=== PATIENT | female | born 1950 | race Caucasian/White ===

== ENCOUNTER 2018-11-26 05:13 | Inpatient (IN) ==
[2018-11-26] MEDS ORDERED: Amiodarone Premix 360 MG/200 ML BAG IVC ONE (05:26)
[2018-11-26] MEDS ORDERED: Amiodarone Premix 150 MG/100 ML BAG IVPB ONE (05:26)
[2018-11-26] MEDS ORDERED: 0.9 % Sodium Chloride 1,000 ML IVC ONE ×2 (05:26→07:08)
[2018-11-26] MEDS ORDERED: Aspirin 81 MG TAB.CHEW PO ONE (05:29)
--- NOTE | 2018-11-26 05:35 | Emergency Department Note ---
Disposition Clinical Impression: Wide-complex tachycardia, New onset a-fib, Atrial fibrillation with RVR, NSTEMI (non-ST elevated myocardial infarction) Disposition: Still a Patient Condition: Serious Referrals: Elliott Pierre MD [Primary Care Provider] - Forms: ED Satisfaction Letter Time of Disposition: 07:18 General Adult HPI - General Stated complaint: [place] Time Seen by Provider: 11/26/18 05:21 Source: patient, EMS Mode of arrival: EMS Limitations: no limitations Nursing Notes Reviewed: Yes Vital Signs Reviewed: Yes - History of Present Illness HPI Narrative: Patient is a 67-year-old female presenting with acute onset chest heaviness and shortness of breath. Patient with known history of COPD, hypertension, hyperlipidemia and diabetes. Patient states that around 0330 she was awoken by headache, she is not then states that she began to have some heaviness in the middle of her chest without radiation, and significant shortness of breath. She states this is continued throughout the night which is why she called EMS. On EMSs arrival, patient appeared to have an irregularly irregular rhythm with a heart rate in the 160s. Patient denies history of similar heart rhythm in the past. She is on any blood thinners. She denies similar symptoms in the past. She denies any vomiting but has had slight nausea. She denies any recent cough, fever or chills. No abdominal pain. Normal urine output without dysuria, normal bowel movements. No abdominal pain. Pain Scale: 0 - Related Data Home Medications Medication Instructions Recorded Confirmed Oxygen 1 each .ROUTE AD 07/21/16 07/21/16 glipiZIDE [Glipizide] 10 mg PO DAILY 07/21/16 07/21/16 metFORMIN [Glucophage] 500 mg PO DAILY 07/21/16 07/21/16 Previous Rx's Medication Instructions Recorded Cyclobenzaprine [Flexeril] 10 mg PO TID PRN #15 tablet 08/25/15 Naproxen [Naprosyn] 500 mg PO BID #15 tablet 08/25/15 Azithromycin [Azithromycin 6-Tab 250 mg PO PER PKG DI #6 tab 07/21/16 Pack] Guaifenesin/Pseudoephedrne HCl 1 each PO BID #20 tab.er.12h 07/21/16 [Mucinex D ER 1,200-120 mg Tab] Meclizine HCl [Verticalm] 25 mg PO TID PRN #20 tablet 07/21/16 Cyclobenzaprine [Flexeril] 10 mg PO HS #4 tablet 10/16/18 Morphine Sulfate Immed Rel 15 mg PO Q4HR PRN 2 Days #12 tab 10/16/18 [Morphine Sulfate] PredniSONE [Deltasone] 60 mg PO DAILY 5 Days #15 tablet 10/16/18 Allergies Allergy/AdvReac Type Severity Reaction Status Date / Time lisinopril Allergy See Verified 10/16/18 18:39 Comments Penicillins Allergy Hives Verified 10/16/18 18:39 All systems ED: reviewed and negative except as stated. Review of Systems: As Per HPI Constitutional: Denies: fever, chills ENT ED: Denies: congestion Cardiovascular: Reports: chest pain, dyspnea on exertion. Denies: palpitations, syncope Respiratory: Reports: dyspnea. Denies: cough, wheezes Gastrointestinal: Reports: nausea. 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 Absent: respiratory distress, wheezes - Cardiovascular Cardiovascular exam: Present: tachycardia, irregular rhythm - Abdominal Exam Abdominal exam: Present: soft, Non-Tender. Absent: tenderness, distention, guarding, rebound, rigidity - Extremities Exam Extremities exam: Present: normal inspection, full ROM. Absent: tenderness, pedal edema - Expanded Lower Extremity Exam Neurovascular/Tendon exam: Absent: motor deficit, sensory deficit, tendon deficit - Back Exam Back exam: Present: normal inspection, full ROM. Absent: tenderness - Neurological Exam Neurological exam: Present: alert, oriented X3 - Psychiatric Psychiatric exam: Present: normal affect, normal mood - Skin Skin exam: Present: warm, dry, intact, normal color Course - Consultations Consultation #1: I spoke with on-call cotton broker, Dr. Mcelroy, I discussed with Dr. Mcelroy that we have at this point in time given the patient and amiodarone bolus as well as started on amiodarone drip for concern with atrial fibrillation wide complex with left bundle branch block, patient has had soft blood pressures here with lowest systolic being 89, high systolic being 110, on arrival, patient's heart rate was in the 160s to 170s beats per minute, since the amiodarone bolus and amiodarone drip her heart rate has been in the 120s, 130s but will bounce up to the 160s at times. I did discuss my concern with starting Cardizem as well as Lopressor given these low blood pressures, however per his recommendation we will start with a Cardizem bolus and Cardizem drip. Patient will be admitted. He will consult on admission. Vital Signs Temperature 97.6 F 11/26/18 05:16 Pulse Rate 162 11/26/18 05:16 Respiratory Rate 12 11/26/18 05:16 Blood Pressure 133/110 11/26/18 05:16 O2 Sat by Pulse Oximetry 98 11/26/18 05:16 Temperature 97.6 F 11/26/18 05:16 Pulse Rate 156 11/26/18 06:24 Respiratory Rate 21 11/26/18 06:24 Blood Pressure 103/72 11/26/18 06:24 O2 Sat by Pulse Oximetry 98 11/26/18 06:24 Oxygen Delivery Oxygen Delivery Room Air Medical Decision Making - [facility] Narrative Medical decision making narrative: Patient is a 67-year-old female presenting with acute onset of chest heaviness, headache and shortness of breath. Patient states that she was awoke from her sleep for headache which she described to be dull bilaterally in nature, she states that she then began to have some chest heaviness, denies specific chest pain, with associated difficulty in breathing. She called EMS, on EMSs arrival, patient had a pulse ox of 98% on room air, her heart rate was irregularly irregular in the 160s to 170s. Blood pressure was stable in the 110s to 120s systolic. On arrival to the ER, patient is in no acute distress, appears uncomfortable, heart rate is in the 160s, appears to have atrial fibrillation with a bundle branch block, when comparison to old EKG performed in 2016, this is new for her. Blood pressure is stable. With this concern with wide complexes and atrial fibrillation with somewhat soft pressures, patient was started on amiodarone bolus and amiodarone drip. Following the amiodarone bolus and amiodarone drip, patient's heart rate began to come down to the 130s to 140s, however remained irregularly irregular. Blood pressure is currently 100 systolic. With this concern and as patient is not rate controlled, did discuss this case with cardiology, Dr. Mcelroy who recommended even though patient is somewhat with low blood pressure, to give Cardizem bolus with initiation of Cardizem drip. Blood pressure following the Cardizem bolus dropped down to 70 systolic, a second liter of bolus was started, and blood pressure was immediately retaken is currently 96 systolic. Patient remained asymptomatic with slight shortness of breath, no lightheadedness or dizziness. Patient otherwise is remained stable. Given concern for acute onset of headache, CT of the head to rule out acute head bleed. Patient will need to be started on anticoagulant medication, for new onset atrial fibrillation as well as patient has elevated troponin at 0.32, suspect an NSTEMI. I did discuss the EKG changes with Dr. Mcelroy, he suspects that this is rate dependent left bundle branch block, does not suspect this is ischemic in nature. Patient at this point in time is been given a total of 2 L normal saline. Patient has received 324 mg of aspirin. At no point in time during her ER stay to this point, has she been unstable, do not feel as though cardioversion has been necessary as she is remained stable, and relatively asymptomatic. At time of disposition, patient will be admitted, she will cardiology consult, patient was signed out to the day team, Dr. Duke and Dr. Da Silva. At time of sign out, patient had CT of the head pending, pending negative CT of the head, patient only needed to be started on antiplatelet urination medicine. She will then be admitted to most likely the ICU for further rate control as at this point in time she is not been rate controlled. - Medical Records Medical records reviewed: Yes I reviewed the patient's medical records. - Lab Data Lab results reviewed: Yes I reviewed the patient's lab results. Result diagrams: 11/26/18 05:30 11/26/18 05:30 Lab Results 11/26/18 11/26/18 11/26/18 Range/Units 05:30 05:30 05:30 WBC 4.4 (4.3-11.1) K/mcL RBC 5.09 H (3.82-4.97) M/mcL Hgb 12.3 (11.5-15.4) g/dL Hct 38.4 (35.3-44.9) % MCV 75.4 L (83.0-100.0) fL MCH 24.2 L (28.0-33.3) pg MCHC 32.0 (31.6-35.5) g/dL RDW 16.0 H (11.5-14.5) % Plt Count 139 L (140-400) K/mcL MPV 9.4 (9.4-12.4) fL Immature Gran % 0.7 (0-4) % Seg Neutrophils % 68.6 % Lymphocytes % 17.7 % Monocytes % 11.9 % Eosinophils % 0.9 % Basophils % 0.2 % Neutrophils # 3.0 (1.6-8.9) K/mcL Lymphocytes # 0.8 (0.6-4.6) K/mcL Monocytes # 0.5 (0.0-1.3) K/mcL Eosinophils # 0.0 (0.0-0.6) K/mcL Basophils # 0.0 (0.0-0.2) K/mcL PT 12.5 H (9.4-12.1) Seconds INR 1.1 APTT 32.0 (26.0-36.0) Seconds Sodium 134 L (136-145) mEq/L Potassium 3.6 (3.5-5.1) mEq/L Chloride 98 (98-107) mEq/L Carbon Dioxide 23 (23-29) mEq/L BUN 11 (8-23) mg/dL Creatinine 0.76 (0.60-1.20) mg/dL Est GFR ( Amer) > 60 (> 60) Est GFR (Non-Af Amer) > 60 (> 60) BUN/Creatinine Ratio 14 (6-26) Glucose 261 H (70-105) mg/dL Calculated Osmolality 286 (280-300) Calcium 9.4 (8.6-10.3) mg/dL Magnesium 1.6 (1.6-2.6) mg/dL Troponin I 0.32 H* (< 0.04) ng/mL TSH 2.472 (0.340-5.600) mcIU/mL - Radiology Data Radiology results reviewed: Yes I reviewed the patient's radiology results. Chest X-Ray 11/26/18 05:46 IMPRESSION: No acute cardiopulmonary disease. D/ / Mohit Lopez MD / Mohit Lopez MD Interpreting Provider: Mohit Lopez MD - EKG Data EKG #1 EKG attestation: Yes I reviewed and interpreted this EKG. EKG results narrative: Initial EKG on arrival performed at 0524 with ventricular rate of 174, appears to be irregularly irregular rhythm, with wide complex, most consistent with atrial fibrillation with left bundle branch block, no sign of WPW or ST segment elevation. Old EKG performed in March 2015, this is a significant difference as there is new left bundle branch block, no history or noted A. fib on prior EKGs. Repeat EKG at 05 shows ventricular rate of 157, continues with irregularly irregular rhythm, wide complex which appears to continue to be A. fib with left bundle branch block.
[2018-11-26 05:43] LABS: Basophils % 0.2 %; Eosinophils % 0.9 %; Hematocrit 38.4 % (35.3-44.9); Hemoglobin 12.3 g/dL (11.5-15.4); Immature Granulocytes % 0.7 % (0-4); Lymphocytes # 0.8 K/mcL (0.6-4.6); Lymphocytes % 17.7 %; Mean Corpuscular Hemoglobin 24.2 pg (28.0-33.3); Mean Corpuscular Volume 75.4 fL (83.0-100.0); Mean Platelet Volume 9.4 fL (9.4-12.4); Monocytes # 0.5 K/mcL (0.0-1.3); Monocytes % 11.9 %; Platelet Count 139 K/mcL (140-400); Red Blood Count 5.09 M/mcL (3.82-4.97); Segmented Neutrophils % 68.6 %; White Blood Count 4.4 K/mcL (4.3-11.1)
--- NOTE | 2018-11-26 05:45 | Emergency Department Note ---
Disposition Clinical Impression: Wide-complex tachycardia, New onset atrial fibrillation Disposition: Still a Patient Condition: Serious Forms: ED Satisfaction Letter Time of Disposition: 07:15 General Adult HPI - General Chief complaint: ED Arrhythmia/Palpitations Stated complaint: [place] Time Seen by Provider: 11/26/18 05:21 Source: patient, EMS Limitations: no limitations Nursing Notes Reviewed: Yes Vital Signs Reviewed: Yes - History of Present Illness Pain Scale: 0 - Related Data Home Medications Medication Instructions Recorded Confirmed Oxygen 1 each .ROUTE AD 07/21/16 07/21/16 glipiZIDE [Glipizide] 10 mg PO DAILY 07/21/16 07/21/16 metFORMIN [Glucophage] 500 mg PO DAILY 07/21/16 07/21/16 Previous Rx's Medication Instructions Recorded Cyclobenzaprine [Flexeril] 10 mg PO TID PRN #15 tablet 08/25/15 Naproxen [Naprosyn] 500 mg PO BID #15 tablet 08/25/15 Azithromycin [Azithromycin 6-Tab 250 mg PO PER PKG DI #6 tab 07/21/16 Pack] Guaifenesin/Pseudoephedrne HCl 1 each PO BID #20 tab.er.12h 07/21/16 [Mucinex D ER 1,200-120 mg Tab] Meclizine HCl [Verticalm] 25 mg PO TID PRN #20 tablet 07/21/16 Cyclobenzaprine [Flexeril] 10 mg PO HS #4 tablet 10/16/18 Morphine Sulfate Immed Rel 15 mg PO Q4HR PRN 2 Days #12 tab 10/16/18 [Morphine Sulfate] PredniSONE [Deltasone] 60 mg PO DAILY 5 Days #15 tablet 10/16/18 Allergies Allergy/AdvReac Type Severity Reaction Status Date / Time lisinopril Allergy See Verified 10/16/18 18:39 Comments Penicillins Allergy Hives Verified 10/16/18 18:39 Past Medical History - Past Medical History Medical history: Reports: diabetes, hyperlipidemia, hypertension, other Psychiatric history: Reports: no psych history 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 - Social History Smoking Status: Never smoker Smokeless Tobacco Status: No Alcohol use: Reports: none Drug use: Reports: none Physical Exam - General Limitations: no limitations General appearance: alert, in no apparent distress Course Vital Signs Temperature 97.6 F 11/26/18 05:16 Pulse Rate 162 11/26/18 05:16 Respiratory Rate 12 11/26/18 05:16 Blood Pressure 133/110 11/26/18 05:16 O2 Sat by Pulse Oximetry 98 11/26/18 05:16 Temperature 97.6 F 11/26/18 05:16 Pulse Rate 156 11/26/18 06:24 Respiratory Rate 21 11/26/18 06:24 Blood Pressure 103/72 11/26/18 06:24 O2 Sat by Pulse Oximetry 98 11/26/18 06:24 Oxygen Delivery Oxygen Delivery Room Air Medical Decision Making - Medical Records Medical records reviewed: Yes I reviewed the patient's medical records. - Lab Data Lab results reviewed: Yes I reviewed the patient's lab results. Result diagrams: 11/26/18 05:30 11/26/18 05:30 Lab Results 11/26/18 11/26/18 11/26/18 Range/Units 05:30 05:30 05:30 WBC 4.4 (4.3-11.1) K/mcL RBC 5.09 H (3.82-4.97) M/mcL Hgb 12.3 (11.5-15.4) g/dL Hct 38.4 (35.3-44.9) % MCV 75.4 L (83.0-100.0) fL MCH 24.2 L (28.0-33.3) pg MCHC 32.0 (31.6-35.5) g/dL RDW 16.0 H (11.5-14.5) % Plt Count 139 L (140-400) K/mcL MPV 9.4 (9.4-12.4) fL Immature Gran % 0.7 (0-4) % Seg Neutrophils % 68.6 % Lymphocytes % 17.7 % Monocytes % 11.9 % Eosinophils % 0.9 % Basophils % 0.2 % Neutrophils # 3.0 (1.6-8.9) K/mcL Lymphocytes # 0.8 (0.6-4.6) K/mcL Monocytes # 0.5 (0.0-1.3) K/mcL Eosinophils # 0.0 (0.0-0.6) K/mcL Basophils # 0.0 (0.0-0.2) K/mcL PT 12.5 H (9.4-12.1) Seconds INR 1.1 APTT 32.0 (26.0-36.0) Seconds Sodium 134 L (136-145) mEq/L Potassium 3.6 (3.5-5.1) mEq/L Chloride 98 (98-107) mEq/L Carbon Dioxide 23 (23-29) mEq/L BUN 11 (8-23) mg/dL Creatinine 0.76 (0.60-1.20) mg/dL Est GFR ( Amer) > 60 (> 60) Est GFR (Non-Af Amer) > 60 (> 60) BUN/Creatinine Ratio 14 (6-26) Glucose 261 H (70-105) mg/dL Calculated Osmolality 286 (280-300) Calcium 9.4 (8.6-10.3) mg/dL Magnesium 1.6 (1.6-2.6) mg/dL Troponin I 0.32 H* (< 0.04) ng/mL TSH 2.472 (0.340-5.600) mcIU/mL - Radiology Data Radiology results reviewed: Yes I reviewed the patient's radiology results. Chest X-Ray 11/26/18 05:46 IMPRESSION: No acute cardiopulmonary disease. D/ / Mohit Lopez MD / Mohit Lopez MD Interpreting Provider: Mohit Lopez MD - EKG Data EKG #1 EKG attestation: Yes I reviewed and interpreted this EKG. EKG results narrative: EKG shows atrial fibrillation with rapid ventricular response. Wide complex tachycardia with heart rate of 174. Likely a left bundle branch block. Critical Care Time Critical Care Time: Yes Total Critical Care Time: 60 Attestation: Critical care performed: Time is exclusive of separately billable procedures. Time includes: direct patient care, patient reassessment, coordination of patient care, interpretation of data (laboratory data, radiology data, and respiratory data), review of patience ent's medical records, medical consultation and documentation of patient care. Procedures included in critical care time: Procedures excluded from critical care time: Attestation Statement - Attestation Attestation: IGerard MD, personally evaluated this patient and discussed their m anagement with the resident physician. I reviewed the resident's note and agree with the documented findings, medical decision making, and plan of care. I reviewed the residents documentation and agree with the residents assessment and plan of care. I have personally had face to face time with the patient. I personally supervised and was present for the romero/critical portions of the following procedures completed by the resident: EKG interpretation. 67-year-old female presents to the emergency department by EMS with a complaint that she awoke from sleep at 3:30 this morning with severe headache and difficulty breathing. She denies any actual chest pain but complains of a mild heaviness across her chest. She was found to be in atrial fibrillation with RVR with a wide QRS complex. She has no prior history of atrial fibrillation or irregular heartbeat. She is not on any anticoagulants. No syncope. On examination patient is a well-developed obese female in no acute distress. She is alert and oriented 3. There is no cyanosis or diaphoresis. Breath so unds are decreased but equal bilaterally with no rales or wheezes noted. Heart is irregularly irregular with a marked tachycardia. Abdomen is soft and nontender with present bowel sounds. No pedal edema. No gross focal neurological deficits. EKG shows atrial fibrillation with rapid ventricular response. Wide complex tachycardia with heart rate of 174. Likely a left bundle branch block. Chest x-ray negative. Labs reviewed. Troponin elevated. Patient was given a bolus and infusion of amiodarone. The engineering and scientific programmer construction administrator, Dr. Mcelroy, was consulted and he recommended giving the patient Cardizem bolus and infusion with IV fluids despite her soft blood pressures. He will consult on the patient in the hospital. At shift change patient is still pending a head CT due to her complaint of severe headache. Patient signed out to the oncoming dayshift team, Dr. Duke and Dr. Da Silva.
[2018-11-26 05:58] LABS: INR 1.1; Prothrombin Time 12.5 Seconds (9.4-12.1)
[2018-11-26 06:03] LABS: BUN/Creatinine Ratio 14 (6-26); Blood Urea Nitrogen 11 mg/dL (8-23); Calcium 9.4 mg/dL (8.6-10.3); Carbon Dioxide 23 mEq/L (23-29); Chloride 98 mEq/L (98-107); Glucose 261 mg/dL (70-105); Magnesium 1.6 mg/dL (1.6-2.6); Osmolality,Calculated 286 (280-300); Potassium 3.6 mEq/L (3.5-5.1); Sodium 134 mEq/L (136-145); eGFR For African Americans > 60 (> 60); eGFR For Non-African Americans > 60 (> 60)
[2018-11-26] MEDS ORDERED: Ondansetron 4 MG/2 ML VIAL IVP ONE (06:15)
[2018-11-26] MEDS ORDERED: Ketorolac 15 MG/ML VIAL IVP ONE (06:15)
[2018-11-26 06:31] LABS: Troponin I 0.32 ng/mL (< 0.04)
[2018-11-26 06:44] LABS: Thyroid Stimulating Hormone 2.472 mcIU/mL (0.340-5.600)
[2018-11-26] MEDS ORDERED: 0.9 % Sodium Chloride 1,000 ML ONE (06:54)
[2018-11-26] MEDS ORDERED: *HR* Enoxaparin 120 MG/0.8 ML SYRINGE SQ STA (07:51)
--- NOTE | 2018-11-26 08:55 | Emergency Department Note ---
Disposition Clinical Impression: Wide-complex tachycardia, New onset a-fib, Atrial fibrillation with RVR, NSTEMI (non-ST elevated myocardial infarction) Disposition: Still a Patient Condition: Serious Referrals: Elliott Pierre MD [Primary Care Provider] - Forms: ED Satisfaction Letter Time of Disposition: 09:08 General Adult HPI - General Chief complaint: ED Arrhythmia/Palpitations Stated complaint: [place] Time Seen by Provider: 11/26/18 05:21 Source: patient, EMS Mode of arrival: EMS Limitations: no limitations Nursing Notes Reviewed: Yes Vital Signs Reviewed: Yes - History of Present Illness Pain Scale: 0 - Related Data Home Medications Medication Instructions Recorded Confirmed Oxygen 1 each .ROUTE AD 07/21/16 07/21/16 glipiZIDE [Glipizide] 10 mg PO DAILY 07/21/16 07/21/16 metFORMIN [Glucophage] 500 mg PO DAILY 07/21/16 07/21/16 Previous Rx's Medication Instructions Recorded Cyclobenzaprine [Flexeril] 10 mg PO TID PRN #15 tablet 08/25/15 Naproxen [Naprosyn] 500 mg PO BID #15 tablet 08/25/15 Azithromycin [Azithromycin 6-Tab 250 mg PO PER PKG DI #6 tab 07/21/16 Pack] Guaifenesin/Pseudoephedrne HCl 1 each PO BID #20 tab.er.12h 07/21/16 [Mucinex D ER 1,200-120 mg Tab] Meclizine HCl [Verticalm] 25 mg PO TID PRN #20 tablet 07/21/16 Cyclobenzaprine [Flexeril] 10 mg PO HS #4 tablet 10/16/18 Morphine Sulfate Immed Rel 15 mg PO Q4HR PRN 2 Days #12 tab 10/16/18 [Morphine Sulfate] PredniSONE [Deltasone] 60 mg PO DAILY 5 Days #15 tablet 10/16/18 Allergies Allergy/AdvReac Type Severity Reaction Status Date / Time lisinopril Allergy See Verified 10/16/18 18:39 Comments Penicillins Allergy Hives Verified 10/16/18 18:39 Constitutional: Denies: fever, chills ENT ED: Denies: congestion Cardiovascular: Reports: chest pain, dyspnea on exertion. Denies: palpitations, syncope Respiratory: Reports: dyspnea. Denies: cough, wheezes Gastrointestinal: Reports: nausea. 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 - Social History Smoking Status: Never smoker Smokeless Tobacco Status: No Alcohol use: Reports: none Drug use: Reports: none Physical Exam - General Limitations: no limitations General appearance: alert, in no apparent distress Course Vital Signs Temperature 97.6 F 11/26/18 05:16 Pulse Rate 162 11/26/18 05:16 Respiratory Rate 12 11/26/18 05:16 Blood Pressure 133/110 11/26/18 05:16 O2 Sat by Pulse Oximetry 98 11/26/18 05:16 Temperature 97.6 F 11/26/18 05:16 Pulse Rate 154 11/26/18 08:49 Respiratory Rate 17 11/26/18 08:49 Blood Pressure 87/75 11/26/18 08:49 O2 Sat by Pulse Oximetry 100 11/26/18 08:49 Oxygen Delivery Oxygen Delivery Nasal Cannula Medical Decision Making - MDM Narrative Medical decision making narrative: Refer to history of present illness, physical exam, medical decision-making and previous notes the pain by Dr. Rodríguez and Dr. Reeves. CT of head negative. Cardizem provided per his recommendations. Bolused at 5 mg, and then re-bolused at 10 with IV drip of Cardizem at 7.5. Patient admitted to the hospitalist, Dr. Butler. Blood pressures remain stable with map greater than 65. We have started Lovenox. - Lab Data Result diagrams: 11/26/18 05:30 11/26/18 05:30 Lab Results 11/26/18 11/26/18 11/26/18 Range/Units 05:30 05:30 05:30 WBC 4.4 (4.3-11.1) K/mcL RBC 5.09 H (3.82-4.97) M/mcL Hgb 12.3 (11.5-15.4) g/dL Hct 38.4 (35.3-44.9) % MCV 75.4 L (83.0-100.0) fL MCH 24.2 L (28.0-33.3) pg MCHC 32.0 (31.6-35.5) g/dL RDW 16.0 H (11.5-14.5) % Plt Count 139 L (140-400) K/mcL MPV 9.4 (9.4-12.4) fL Immature Gran % 0.7 (0-4) % Seg Neutrophils % 68.6 % Lymphocytes % 17.7 % Monocytes % 11.9 % Eosinophils % 0.9 % Basophils % 0.2 % Neutrophils # 3.0 (1.6-8.9) K/mcL Lymphocytes # 0.8 (0.6-4.6) K/mcL Monocytes # 0.5 (0.0-1.3) K/mcL Eosinophils # 0.0 (0.0-0.6) K/mcL Basophils # 0.0 (0.0-0.2) K/mcL PT 12.5 H (9.4-12.1) Seconds INR 1.1 APTT 32.0 (26.0-36.0) Seconds Sodium 134 L (136-145) mEq/L Potassium 3.6 (3.5-5.1) mEq/L Chloride 98 (98-107) mEq/L Carbon Dioxide 23 (23-29) mEq/L BUN 11 (8-23) mg/dL Creatinine 0.76 (0.60-1.20) mg/dL Est GFR ( Amer) > 60 (> 60) Est GFR (Non-Af Amer) > 60 (> 60) BUN/Creatinine Ratio 14 (6-26) Glucose 261 H (70-105) mg/dL Calculated Osmolality 286 (280-300) Calcium 9.4 (8.6-10.3) mg/dL Magnesium 1.6 (1.6-2.6) mg/dL Troponin I 0.32 H* (< 0.04) ng/mL TSH 2.472 (0.340-5.600) mcIU/mL - EKG Data EKG #1 EKG attestation: Yes I reviewed and interpreted this EKG. EKG results narrative: 07:36 Heart rate 152 bpm, IN of 143 ms, QRS duration 137, QT 331 ms, A. fib with RVR, wide complex. ST depressions in the lateral leads.
--- NOTE | 2018-11-26 09:39 | Internal Med History&Physical ---
Date of Encounter: 11/26/18 Time of Encounter: 09:38 Internal Medicine - H&P: HPI History of present illness: Ms. Cotter is a 67 year old female with past medical history significant for diabetes, hyperlipidemia, hypertension, copd. She presented to the ED with complaints of acute onset chest heaviness and shortness of breath. And also reported having headache which woke her up this morning. She reported that she saw her property administrator Dr. Mcelroy who referred her to the ED to be evaluated for palpitations. She denies any prior history of palpitation or prior diagnosis of atrial fibrillation. Upon arrival in the ED she was noted to have atrial fibrillation with rapid ventricular response. During the encounter with the patient denies any chest pain but does report to having palpitations. She also reports a history of YUNIER but stated that twice she could not complete the sleep study did admit to up it Is as outlined which was confirmed by the Quinn he can be reached at [phone]. She reports generalized fatigue and Constant morning headaches. Amongst her woke up by the ED was unremarkable CBC, BMP revealed mild hyponatremia, however initial troponin was elevated. Past Med Surg Social Fam HX - Past Medical History Medical history: diabetes, hyperlipidemia, hypertension, other Additional medical history: sleep apnea Psychiatric history: no psych history - Past Surgical History Additional surgical history: EYE SURGERIES - Social History Smoking Status: Never smoker Smokeless Tobacco Status: No Alcohol use: none Drug use: none Internal Medicine - H&P: Meds glipiZIDE [Glipizide] 10 mg PO DAILY 07/21/16 [History] metFORMIN [Glucophage] 500 mg PO DAILY 07/21/16 [History] Losartan Potassium [Cozaar] 100 mg PO DAILY 11/26/18 [History] Nabumetone 750 mg PO BID 11/26/18 [History] Omeprazole [PriLOSEC] 20 mg PO DAILY 11/26/18 [History] Allergy/AdvReac Type Severity Reaction Status Date / Time lisinopril Allergy See Verified 10/16/18 18:39 Comments Penicillins Allergy Hives Verified 10/16/18 18:39 All Systems PM: A 10-system review of systems was performed and is negative for pertinent findings except as documented above in the HPI. Review of systems: GENERAL: Denies fever, chills, reports fatigue . DERMATOLOGIC: Denies itch, rash or lesions HEENT: Denies headache, blurriness, diplopia or decreased visual acuity, ear dasha n, tinnitus, rhinorrhea, sinus tenderness or sore throat RESPIRATORY: Denies SOB, cough, hemoptysis or pleuritic chest pain CARDIOVASCULAR: Reports chest pain and palpitation, LE edema GASTRO INTESTINAL: Denies cramps, nausea/vomiting, diarrhea or constipation, melena MUSCULOSKELATAL: Denies muscle pain/weakness, joint tenderness/pain or swelling PSYCH: Denies worsening anxiety, or depression NEURO: Denies vertigo, dizziness, or ataxia GENITURINARY: Denies dysuria, nocturia or urinary incontinence - Constitutional Vitals: Temp Pulse Resp BP Pulse Ox 97.6 F 154 17 87/75 100 11/26/18 05:16 11/26/18 08:49 11/26/18 08:49 11/26/18 08:49 11/26/18 08:49 Exam: GENERAL: Obese female NAD, A&O x3, pleasant and conversant, at the bedside SKIN: No skin lesions or rashes, non-jaundiced EYES: EOMI, PERRLA, no sclera icterus HENT: Head atraumatic, no facial asymmetry, frontal and maxillary sinus non- tender, normal hearing, oropharynx and mucosa moist and without any exudates NECK: No cervical lymphadenopathy, trachea midline, thyroid is palpable does not appear enlarged LUNGS: vesicular breath sounds, clear to auscultation, no wheeze, rhonchi, rales or crackles. Non labored respirations HEART: Normal rate and rhythm, no murmurs or rubs ABDOMEN: soft, non-tender, non-distended, bowel sounds x 4 normoactive EXTRMITIES: No LE asymmetry, No LE edema, pedal pulses 1+ and radial pulses 2 + and equal bilaterally NEURO: Speech and comprehension appears intact. . PSYCH: Cooperative, non- anxious or irritable, mood and affect is appropriate Internal Med - H&P Results - Labs CBC & Chem 7: 11/26/18 12:44 11/26/18 05:30 Labs: Short CBC 11/26/18 Range/Units 05:30 WBC 4.4 (4.3-11.1) K/mcL Hgb 12.3 (11.5-15.4) g/dL Hct 38.4 (35.3-44.9) % Plt Count 139 L (140-400) K/mcL Neutrophils # 3.0 (1.6-8.9) K/mcL BMP 11/26/18 05:30 Sodium 134 L Potassium 3.6 Chloride 98 Carbon Dioxide 23 BUN 11 Creatinine 0.76 Glucose 261 H Calcium 9.4 Cardiac Enzymes 11/26/18 Range/Units 05:30 Troponin I 0.32 H* (< 0.04) ng/mL - Impressions ITS Impressions Chest X-Ray 11/26/18 05:46 IMPRESSION: No acute cardiopulmonary disease. D/ / 11/26/2018 08:56:44 Mohit Lopez MD / hanane Interpreting Provider: Mohit Lopez MD Head CT 11/26/18 07:39 IMPRESSION: No acute intracranial abnormality. D/ / Doni Bedolla MD / Doni Bedolla MD Interpreting Provider: oDni Bedolla MD - Assessment and Plan (1) NSTEMI (non-ST elevated myocardial infarction) Current Visit: Yes Status: Acute Assessment and plan: Troponin trended up since admission 0.32-0.49 eval by property administrator input appreciated, . She is plan for left heart catheter tomorrow. Patient is currently on heparin drip per protocol for new onset A. fib (2) Atrial fibrillation with RVR Current Visit: Yes Status: Acute Assessment and plan: new onset atrial defibrillation with rapid ventricular response started on diltiazem drip, TSH of 2.472. She will be placed on heparin per protocol continue to wean off diltiazem drip and start Toprol XL (3) Hyponatremia Current Visit: Yes Status: Acute Assessment and plan: Sodium is mild at 134 she appears to be euvolemic we will repeat BMP in am (4) Morbid obesity with BMI of 45.0-49.9, adult Current Visit: Yes Status: Acute Assessment and plan: encourage lifestyle modifications diet and exercise (5) COPD (chronic obstructive pulmonary disease) Current Visit: Yes Status: Acute Assessment and plan: DuoNeb as needed basis to COPD exacerbation, she denies tobacco use attributed her COPD to years of secondary smoke exposure Qualifiers: COPD type: chronic bronchitis Chronic bronchitis type: simple Qualified Code(s): J41.0 - Simple chronic bronchitis (6) DVT prophylaxis Current Visit: Yes Status: Acute Assessment and plan: Already on heparin drip per protocol for A. fib - Time Spent With Patient Total time spent is greater than 50% in coordination of care (as documented) at patient's floor/unit and/or counseling patient:
[2018-11-26] MEDS ORDERED: Naloxone 0.4 MG/ML INJ IVP PRN ×2 (09:57→11:46)
[2018-11-26] MEDS ORDERED: Ondansetron 4 MG/2 ML VIAL IVP PRN (09:57)
--- NOTE | 2018-11-26 11:03 | Emergency Department Note ---
Disposition Clinical Impression: Wide-complex tachycardia, New onset a-fib, Atrial fibrillation with RVR, NSTEMI (non-ST elevated myocardial infarction) Disposition: Still a Patient Condition: Serious Referrals: Elliott Pierre MD [Primary Care Provider] - Forms: ED Satisfaction Letter Time of Disposition: 09:10 General Adult HPI - General Chief complaint: ED Arrhythmia/Palpitations Stated complaint: [place] Time Seen by Provider: 11/26/18 05:21 Source: patient, EMS Mode of arrival: EMS Limitations: no limitations Nursing Notes Reviewed: Yes Vital Signs Reviewed: Yes - History of Present Illness Pain Scale: 0 - Related Data Home Medications Medication Instructions Recorded Confirmed glipiZIDE [Glipizide] 10 mg PO DAILY 07/21/16 11/26/18 metFORMIN [Glucophage] 500 mg PO DAILY 07/21/16 11/26/18 Omeprazole [PriLOSEC] 20 mg PO DAILY 11/26/18 11/26/18 Allergies Allergy/AdvReac Type Severity Reaction Status Date / Time lisinopril Allergy See Verified 10/16/18 18:39 Comments Penicillins Allergy Hives Verified 10/16/18 18:39 Constitutional: Denies: fever, chills ENT ED: Denies: congestion Cardiovascular: Reports: chest pain, dyspnea on exertion. Denies: palpitations, syncope Respiratory: Reports: dyspnea. Denies: cough, wheezes Gastrointestinal: Reports: nausea. Denies: abdominal pain, vomiting Genitourinary: Denies: urgency, dysuria, frequency Musculoskeletal: Denies: back pain Integumentary: Denies: rash Neurological: Denies: headache, weakness, confusion Endocrine: Denies: fatigue Past Medical History - Past Medical History Medical history: Reports: diabetes, hyperlipidemia, hypertension, other Psychiatric history: Reports: no psych history ASSEMBLER INSULATOR history: Reports: no ASSEMBLER INSULATOR history - Social History Smoking Status: Never smoker Smokeless Tobacco Status: No Alcohol use: Reports: none Drug use: Reports: none Physical Exam - General Limitations: no limitations General appearance: alert, in no apparent distress Course Vital Signs Temperature 97.6 F 11/26/18 05:16 Pulse Rate 162 11/26/18 05:16 Respiratory Rate 12 11/26/18 05:16 Blood Pressure 133/110 11/26/18 05:16 O2 Sat by Pulse Oximetry 98 11/26/18 05:16 Temperature 97.6 F 11/26/18 05:16 Pulse Rate 81 11/26/18 10:28 Respiratory Rate 18 11/26/18 10:28 Blood Pressure 108/86 11/26/18 10:28 O2 Sat by Pulse Oximetry 100 11/26/18 10:28 Oxygen Delivery Oxygen Delivery Nasal Cannula Medical Decision Making - Lab Data Result diagrams: 11/26/18 05:30 11/26/18 05:30 Lab Results 11/26/18 11/26/18 11/26/18 Range/Units 05:30 05:30 05:30 WBC 4.4 (4.3-11.1) K/mcL RBC 5.09 H (3.82-4.97) M/mcL Hgb 12.3 (11.5-15.4) g/dL Hct 38.4 (35.3-44.9) % MCV 75.4 L (83.0-100.0) fL MCH 24.2 L (28.0-33.3) pg MCHC 32.0 (31.6-35.5) g/dL RDW 16.0 H (11.5-14.5) % Plt Count 139 L (140-400) K/mcL MPV 9.4 (9.4-12.4) fL Immature Gran % 0.7 (0-4) % Seg Neutrophils % 68.6 % Lymphocytes % 17.7 % Monocytes % 11.9 % Eosinophils % 0.9 % Basophils % 0.2 % Neutrophils # 3.0 (1.6-8.9) K/mcL Lymphocytes # 0.8 (0.6-4.6) K/mcL Monocytes # 0.5 (0.0-1.3) K/mcL Eosinophils # 0.0 (0.0-0.6) K/mcL Basophils # 0.0 (0.0-0.2) K/mcL PT 12.5 H (9.4-12.1) Seconds INR 1.1 APTT 32.0 (26.0-36.0) Seconds Sodium 134 L (136-145) mEq/L Potassium 3.6 (3.5-5.1) mEq/L Chloride 98 (98-107) mEq/L Carbon Dioxide 23 (23-29) mEq/L BUN 11 (8-23) mg/dL Creatinine 0.76 (0.60-1.20) mg/dL Est GFR ( Amer) > 60 (> 60) Est GFR (Non-Af Amer) > 60 (> 60) BUN/Creatinine Ratio 14 (6-26) Glucose 261 H (70-105) mg/dL Calculated Osmolality 286 (280-300) Calcium 9.4 (8.6-10.3) mg/dL Magnesium 1.6 (1.6-2.6) mg/dL Troponin I 0.32 H* (< 0.04) ng/mL TSH 2.472 (0.340-5.600) mcIU/mL Critical Care Time Critical Care Time: Yes Total Critical Care Time: 45 Attestation: Critical care performed: Time is exclusive of separately billable procedures. Time includes: direct patient care, patient reassessment, coordination of patient care, interpretation of data (laboratory data, radiology data, and respiratory data), review of patient's medical records, medical consultation and documentation of patient care. Procedures included in critical care time: Procedures excluded from critical care time: Attestation Statement - Attestation Attestation: I examined this patient and my medical decision-making was reviewed with the Resident Physician. I agree with the documented findings, disposition and treatment plan as described except to the extent set forth below. Patient signed out as pending head CT and admission. Patient did spontaneously cardiovert in the department while on Cardizem and amiodarone. Admitted to medicine. Chest X-Ray 11/26/18 05:46 IMPRESSION: No acute cardiopulmonary disease. D/ /26/2018 08:56:44 Mohit Lopez MD / hanane Interpreting Provider: Mohit Lopez MD Head CT 11/26/18 07:39 IMPRESSION: No acute intracranial abnormality. D/ / Doni Bedolla MD / Doni Bedolla MD Interpreting Provider: Doni Bedolla MD
[2018-11-26] MEDS ORDERED: Amiodarone Premix 360 MG/200 ML BAG IVC SCH (11:30)
[2018-11-26] MEDS ORDERED: *HR* Heparin 5,000 UNIT/ML VIAL IVP ONE (12:25)
[2018-11-26] MEDS ORDERED: *HR* Heparin 5,000 UNIT/ML VIAL IVP PRN ×2 (12:25)
[2018-11-26] MEDS ORDERED: Dextrose Gel 15 GM/37.5 ML TUBE PO PRN ×2 (12:27)
[2018-11-26] MEDS ORDERED: D5% in Water 1,000 ML IVC PRN ×2 (12:27→13:09)
[2018-11-26] MEDS ORDERED: *HR* Dextrose 50 % in Water (Syg) 50 ML SYRINGE IVP PRN (12:27)
[2018-11-26 13:09] LABS: Hematocrit 37.4 % (35.3-44.9); Hemoglobin 11.6 g/dL (11.5-15.4); Mean Corpuscular Volume 74.2 fL (83.0-100.0); Mean Platelet Volume 9.5 fL (9.4-12.4); Platelet Count 155 K/mcL (140-400); Red Blood Count 5.04 M/mcL (3.82-4.97); Red Cell Distribution Width 16.4 % (11.5-14.5); White Blood Count 3.8 K/mcL (4.3-11.1)
[2018-11-26 13:11] LABS: Estimated Average Glucose 189 mg/dl
--- NOTE | 2018-11-26 13:16 | Cardiology Consult Note ---
<Marjan Christopher - Last Filed: 11/26/18 13:38> Date of Encounter: 11/26/18 Time of Encounter: 13:15 Assessment and Plan (1) NSTEMI (non-ST elevated myocardial infarction) Current Visit: Yes Status: Acute Per cardiology: -Troponins 0.32, 0.49. -ECG with a.fib RVR, newly detected LBBB. -TTE pending. -Admits to chest pain on admission. Denies current chest pain. -On Heparin drip, BB. -No previous cardiology records. -Type I vs II. Recommend LHC. Risks versus benefits of LHC explained to patient and family, who state understanding and agreeable to proceed. -Will add statin, asa. Agree with heparin drip. Continue BB. -TTE -NPO after midnight. -Continue to trend troponins until down trending. (2) Atrial fibrillation with RVR Current Visit: Yes Status: Acute Per cardiology: -New onset a.fib. -Was given cardizem and amio in ER. -Now in SR> -BB has been started. -[id number] score 4 (age, gender, HTN, DM). Heparin drip has been ordered. -TTE pending. -Reports untreated sleep apnea. Last sleep study ~5 years ago. -Continue BB. -Agree with heparin drip. Will determine rn long term care anticoagulation pending clinical coarse. -Will continue to monitor. Discussion w patient/family: The assessment and plan as outlined above was discussed with the patient and/or family members who expressed understanding and agreement. All questions were answered. Thank you for involving us in the care of your patient. Please call with any questions. Discussed and reviewed with . History of Present Illness Consult date: 11/26/18 Requesting physician: Ike Rodríguez Consult reason: NSTEMI, a.fib RVR Chief complaint: chest pain, shortness of breath, headache History of present illness: Ms. Cotter is a 67 year old female with a relevant past medical history of DM, OA, YUNIER non-compliant with CPAP, breast cancer, obesity, peripheral neuropathy, who presented to [facility] with complaints of headache and shortness of breath. Patient also reports chest tightness. Patient states chest tightness and shortness of breath worse with exertion. Patient presented to ER and was noted to be in a.fib RVR and was started on cardizem and amiodarone. Patient was also started on heparin drip. Currently patient is chest pain free. Reports shortness of breath improved. Denies current complaints. Past Med Surg Social Fam HX - Past Medical History Attestation: Yes The following information was validated with the patient. Source: patient, old records reviewed Medical history: diabetes, hyperlipidemia, hypertension, other Additional medical history: sleep apnea Psychiatric history: no psych history - Past Surgical History Surgical History: breast surgery Additional surgical history: EYE SURGERIES - Social History Smoking Status: Never smoker Smokeless Tobacco Status: No Alcohol use: none Drug use: none Medications and Allergies glipiZIDE [Glipizide] 10 mg PO DAILY 07/21/16 [History] metFORMIN [Glucophage] 500 mg PO DAILY 07/21/16 [History] Losartan Potassium [Cozaar] 100 mg PO DAILY 11/26/18 [History] Nabumetone 750 mg PO BID 11/26/18 [History] Omeprazole [PriLOSEC] 20 mg PO DAILY 11/26/18 [History] Allergy/AdvReac Type Severity Reaction Status Date / Time lisinopril Allergy See Verified 10/16/18 18:39 Comments Penicillins Allergy Hives Verified 10/16/18 18:39 All Systems Review: The remainder of the systems were reviewed and are negative - Cardiovascular Cardiovascular: as per HPI, chest pain at rest, chest pain with exertion, dyspnea at rest, dyspnea on exertion Physical Examination Vital Signs, Last 4 Hours Temp Pulse Resp BP Pulse Ox 11/26/18 12:15 98.3 F 95 22 120/72 97 11/26/18 10:28 81 18 108/86 100 General: Conversant, No Apparent Distress HEENT: Atraumatic, Normocephaly, Mucus Membranes Moist Neck: No JVD, Normal carotid pulses Cardiac: Reg Rate and Rhythm, Normal S1 and S2, No Murmur Lungs: Normal Breath Sounds, No Wheeze, Rales, Rhonchi Neuro: Alert and responsive, No focal deficits noted Abdomen: Soft, Non-Tender Skin: No rashes noted on visualized skin Musculoskeletal: No Chest Wall Tenderness Extremities: No Clubbing, No Cyanosis, No Edema, Normal Pulses Results 11/26/18 12:44 11/26/18 05:30 Lab Results Impressions Chest X-Ray 11/26/18 05:46 IMPRESSION: No acute cardiopulmonary disease. D/ / 11/26/2018 08:56:44 Mohit Lopez MD / hanane Interpreting Provider: Mohit Lopez MD Head CT 11/26/18 07:39 IMPRESSION: No acute intracranial abnormality. D/ / Doni Bedolla MD / Doni Bedolla MD Interpreting Provider: Doni Bedolla MD Active Medications Aspirin (Aspirin Ec) 81 mg PO DAILY GUIDO Stop: 05/29/19 09:01 Atorvastatin Calcium (Lipitor) 40 mg PO HS GUIDO Stop: 05/28/19 21:01 Dextrose/Water (Dextrose 50% (Syg)) 25 ml IVP AD PRN PRN Reason: Hypoglycemia Stop: 05/28/19 12:28 Glucagon (Glucagen) 1 mg IM ONCE PRN PRN Reason: Hypoglycemia Stop: 05/28/19 12:28 Glucose (Gluctose) 15 gm PO ONCE PRN PRN Reason: Hypoglycemia Stop: 05/28/19 12:28 Glucose (Gluctose) 30 gm PO ONCE PRN PRN Reason: Hypoglycemia Stop: 05/28/19 12:28 Heparin Sodium (Porcine) (Heparin) 8,200 unit 70 unit/kg (8200 unit) IVP Q6HR PRN PRN Reason: SEE COMMENTS Stop: 05/28/19 12:26 Heparin Sodium (Porcine) (Heparin) 4,100 unit 35 unit/kg (4100 unit) IVP Q6H PRN PRN Reason: SEE COMMENTS Stop: 05/28/19 12:26 Heparin Sodium/Dextrose (Heparin 25,000 Unit/250 Ml D5w) 25,000 unit in 250 mls @ 16.384 mls/hr IVC .[id number] GUIDO; Protocol Stop: 05/28/19 12:31 Dextrose (Dextrose 5%) 1,000 mls @ 100 mls/hr IVC .Q10H PRN PRN Reason: HYPOGLYCEMIA Stop: 05/28/19 13:10 Insulin Detemir (Levemir) 30 unit 0.25 unit/kg (30 unit) SQ HS [facility] Stop: 05/28/19 21:01 Insulin Human Lispro (Humalog) 10 units 0.08 units/kg (10 units) SQ TIDWM [facility] Stop: 05/28/19 17:01 Metoprolol Succinate (Toprol Xl) 25 mg PO DAILY [facility] Stop: 05/29/19 09:01 Naloxone HCl (Narcan) 0.4 mg IVP Q2MPRN PRN PRN Reason: SEE COMMENTS Stop: 05/28/19 09:58 Omeprazole (Prilosec) 20 mg PO DAILY [facility]; Protocol Stop: 05/29/19 09:01 Ondansetron HCl (Zofran) 4 mg IVP Q8HR PRN PRN Reason: Nausea And Vomiting Stop: 05/28/19 09:58 Laboratory Tests 11/26/18 11/26/18 11/26/18 05:30 05:30 11:10 Hgb 12.3 Potassium 3.6 Creatinine 0.76 Magnesium 1.6 Troponin I 0.32 H* 0.49 H* TSH 2.472 - Imaging and Cardiology Chest Xray: report reviewed Echo: pending - EKG Interpretation EKG results cardiology: personally reviewed (ECG with a.fib RVR, LBBB noted.), other (Telemetry reviewed, currently SR, HR 90s.) Consult Discharge Plan - Plan Referrals: Samir Barroso MD [Partnered Physician] - (per the cardiology office they will call the patient at home with follow up appointment) Yamilet Aguilar CNP [Advanced Practice Nurse] - 12/02/18 2:00 pm CHADS2-VASC Score - Score Age: 65-74 Sex: Female Hypertension history: Yes Diabetes history: Yes Score: 4 HAS-BLED Score - Score Elderly: Age>65 years Medication usage predisposing to bleeding: Antiplatelet agents, NSAIDs, Anticoagulants Score: 2 < A - Last Filed: 11/26/18 19:31> Date of Encounter: 11/26/18 - Attending Attestation I have personally performed a face to face evaluation on this patient. I have reviewed and agree with the documented findings and care plan as documented by the INTERNET SALES REPRESENTATIVE. History and Exam by me shows: Patients with respect risk factors for CAD, admitted with NSTEMI. I agree with cardiac catheterization. Aspirin 81 mg daily, IV heparin, high intensity statin, beta hood Thanks for the consult, please call with questions. Alin Ng MD FAC Assessment and Plan Discussion w patient/family: The assessment and plan as outlined above was discussed with the patient and/or family members who expressed understanding and agreement. All questions were answered. Thank you for involving us in the care of your patient. Please call with any questions. History of Present Illness History of present illness: Ms. Cotter is a 67 year old female All Systems Review: The remainder of the systems were reviewed and are negative Physical Examination Vital Signs, Last 4 Hours Temp Pulse Resp BP Pulse Ox 11/26/18 19:11 98.5 F 94 20 95/73 93 11/26/18 15:49 98.8 F 80 18 104/59 94 Results 11/26/18 12:44 11/26/18 05:30 Lab Results 11/26/18 11/26/18 11/26/18 05:30 05:30 05:30 WBC 4.4 Hgb 12.3 Hct 38.4 Plt Count 139 L INR 1.1 APTT 32.0 Sodium 134 L Potassium 3.6 Chloride 98 Carbon Dioxide 23 BUN 11 Creatinine 0.76 Glucose 261 H Calcium 9.4 Magnesium 1.6 Troponin I 0.32 H* TSH 2.472 11/26/18 11/26/18 11/26/18 11:10 12:44 12:44 WBC 3.8 L Hgb 11.6 Hct 37.4 Plt Count 155 INR 1.1 APTT Sodium Potassium Chloride Carbon Dioxide BUN Creatinine Glucose Calcium Magnesium Troponin I 0.49 H* TSH 11/26/18 17:41 WBC Hgb Hct Plt Count INR APTT Sodium Potassium Chloride Carbon Dioxide BUN Creatinine Glucose Calcium Magnesium Troponin I 2.05 H* TSH
[2018-11-26 13:18] LABS: INR 1.1; Prothrombin Time 12.5 Seconds (9.4-12.1)
[2018-11-26] MEDS ORDERED: Metoprolol XL (24 HR) Succ 25 MG TAB.ER.24H PO STA (13:23)
[2018-11-26] MEDS: Heparin 25,000 UNIT/250 ML D5W 25,000 UNIT/250 ML IV.SOLN IVC SCH (14:25)
[2018-11-26] MEDS: Insulin LISPRO 300 UNITS/3 ML VIAL SQ SCH (16:31)
[2018-11-26] MEDS ORDERED: Ipratropium/Albuterol Neb 3 ML IH PRN (18:30)
[2018-11-26] MEDS ORDERED: Insulin DETEMIR 100 UNIT/ML X5UNITS SQ SCH (21:00)
[2018-11-26] MEDS ORDERED: Perflutren Lipid Microsphere 1.3 ML in 0.9 % Sodium Chloride 8.7 ML IVP ONE (22:34)
[2018-11-27] MEDS: Heparin 25,000 UNIT/250 ML D5W 25,000 UNIT/250 ML IV.SOLN IVC SCH ×2 (03:33→16:38)
[2018-11-27 04:24] LABS: Basophils % 0.3 %; Eosinophils # 0.1 K/mcL (0.0-0.6); Eosinophils % 0.8 %; Hemoglobin 10.7 g/dL (11.5-15.4); Immature Granulocytes % 0.3 % (0-4); Lymphocytes # 1.1 K/mcL (0.6-4.6); Lymphocytes % 16.4 %; Mean Corpuscular HGB Conc 31.5 g/dL (31.6-35.5); Mean Corpuscular Hemoglobin 23.6 pg (28.0-33.3); Mean Corpuscular Volume 75.1 fL (83.0-100.0); Mean Platelet Volume 9.4 fL (9.4-12.4); Monocytes # 0.6 K/mcL (0.0-1.3); Monocytes % 9.1 %; Neutrophils # 4.8 K/mcL (1.6-8.9); Platelet Count 138 K/mcL (140-400); Red Blood Count 4.53 M/mcL (3.82-4.97); Red Cell Distribution Width 16.3 % (11.5-14.5); Segmented Neutrophils % 73.1 %
[2018-11-27 04:25] LABS: White Blood Count 6.6 K/mcL (4.3-11.1)
[2018-11-27 04:37] LABS: BUN/Creatinine Ratio 23 (6-26); Blood Urea Nitrogen 14 mg/dL (8-23); Calcium 8.7 mg/dL (8.6-10.3); Carbon Dioxide 24 mEq/L (23-29); Chloride 102 mEq/L (98-107); Glucose 209 mg/dL (70-105); Magnesium 1.7 mg/dL (1.6-2.6); Osmolality,Calculated 287 (280-300); Potassium 3.9 mEq/L (3.5-5.1); Sodium 135 mEq/L (136-145); eGFR For African Americans > 60 (> 60); eGFR For Non-African Americans > 60 (> 60)
--- NOTE | 2018-11-27 07:37 | Internal Med Progress Note ---
Hospitalist Progress Note - Encounter Date of Encounter: 11/27/18 Time of Encounter: 07:33 - Subjective Interval History: Patient looks miserable this AM. Says she's having a hard time breathing and feels in general uncomfortable. Daughters present and are both concerned as well. They say she's been occasionally confused since last night. Deny fevers (b ut later this AM did spike one). No N/V/D. No CP or palpitations. - Exam Vitals: Temp Pulse Resp BP Pulse Ox 98.5 F 95 20 135/64 97 11/27/18 03:38 11/27/18 03:40 11/27/18 03:38 11/27/18 03:38 11/27/18 03:38 Exam: General: decent eye contact, ill appearing but nontoxic Thoracic: Normal breath sounds b/l but poor effort, no overt wheezing or crackles Cardio: Normal S1 and S2, regular rhythm, tachycardic Abdomen: Soft, nontender, nondistended, obese Extremities: Warm, well perfused. DP pulses 2+ b/l. No edema. Skin: Intact. No rashes, bruises, or ulcers Neuro: Awake, fully oriented but some difficulty with complex questions or tasks. Speech fluent. Moving all extremities spontaneously. - Summary of Assessment and Plan Summary of Assessment and Plan: Elana Cotter is a 67 F w hx HTN, HLD, DM2, COPD, YUNIER, who p/w chest pain, tachycardia, tachypnea, fever, leukopenia, elevated trop, ecg showing A-Fib, consistent with NSTEMI and first detected episode of A-Fib as well as potential sepsis. Sepsis: SIRS 4/4, unclear source of infection but has CP/SOB, CXR on admission unremarkable - BCx x2 - UA - lactate - empiric levaquin 750 NSTEMI: Trop up to 2.6, pt ill appearing and states chest pain/pressure occurred suddenly. Could be primary although could be demand. - trend trops - tele - d-dimer, BNP - CTPE to r/o PE A-Fib: AC on hep gtt and will need discussion, rate better controlled on toprol 25 bid in HR 100-110s DM2: hyperglycemic, use SSI HTN: SBP ranging 80-140 HLD/CAD: home ASA, lipitor PPx: hep gtt until [facility], then discuss therapeutic AC Tele: yes Activity: up ad joaquina FEN: ADA, no MIVF Lines: PIV Consults: Cardio Code: Full Dispo: patient requires inpatient eval and management at this time, anticipate 2-3 more days, will be homegoing Internal Medicine: Result - Labs CBC & Chem 7: 11/27/18 04:06 11/27/18 04:06 Labs: Short CBC 11/26/18 11/27/18 Range/Units 12:44 04:06 WBC 3.8 L 6.6 D (4.3-11.1) K/mcL Hgb 11.6 10.7 L (11.5-15.4) g/dL Hct 37.4 34.0 L (35.3-44.9) % Plt Count 155 138 L (140-400) K/mcL Neutrophils # 4.8 (1.6-8.9) K/mcL BMP 11/27/18 04:06 Sodium 135 L Potassium 3.9 Chloride 102 Carbon Dioxide 24 BUN 14 Creatinine 0.61 Glucose 209 H Calcium 8.7 Cardiac Enzymes 11/26/18 11/26/18 Range/Units 11:10 17:41 Troponin I 0.49 H* 2.05 H* (< 0.04) ng/mL - ABG Interpretation ABG results: PT/INR, D-dimer PT 12.5 Seconds (9.4-12.1) H 11/26/18 12:44 - Impressions Impressions Chest X-Ray 11/26/18 05:46 IMPRESSION: No acute cardiopulmonary disease. D/ / 11/26/2018 08:56:44 Mohit Lopez MD / hanane Interpreting Provider: Mohit Lopez MD Head CT 11/26/18 07:39 IMPRESSION: No acute intracranial abnormality. D/ / Doni Bedolla MD / Doni Bedolla MD Interpreting Provider: Doni Bedolla MD Consult Discharge Plan - Plan Referrals: Samir Barroso MD [Partnered Physician] - (per the cardiology office they will call the patient at home with follow up appointment) Yamilet Aguilar CNP [Advanced Practice Nurse] - 12/02/18 2:00 pm
[2018-11-27] MEDS ORDERED: Metoprolol XL (24 HR) Succ 25 MG TAB.ER.24H PO SCH (09:00)
[2018-11-27] MEDS: Aspirin Enteric Coated 81 MG Tablet PO SCH (09:23)
[2018-11-27] MEDS: Insulin LISPRO 300 UNITS/3 ML VIAL SQ SCH ×6 (09:28→21:03)
[2018-11-27 09:36] LABS: Troponin I 2.61 ng/mL (< 0.04)
--- NOTE | 2018-11-27 11:07 | Cardiology Progress Note ---
Date of Encounter: 11/27/18 Time of Encounter: 11:04 Assessment and Plan (1) NSTEMI (non-ST elevated myocardial infarction) Current Visit: Yes Status: Acute Per cardiology: -Troponins 0.32, 0.49, 2.05, 2.61. -ECG with a.fib RVR, newly detected LBBB. -TTE with LVEF 45%, global hypokinesis, diastolic dysfuntion, moderate MR, mild TR. -Admits to chest pain on admission. Denies current chest pain. -On Heparin drip, BB, asa, statin. -No previous cardiology records. -NSTEMI. Risks versus benefits of LHC explained to patient and family, who state understanding and agreeable to proceed. Plan was for LHC today, however now patient febrile. Discussed with , who recommends infectious work up prior to LHC. Discussed with patient and hospitalist. LHC is not emergent as patient is chest pain free. -Continue current medical therapy. -NPO after midnight. -Continue to trend troponins until down trending. (2) Atrial fibrillation with RVR Current Visit: Yes Status: Acute Per cardiology: -New onset a.fib. -Was given cardizem and amio in ER. -Now in SR. -BB has been started. -Roibh2vcvy score 4 (age, gender, HTN, DM). On heparin drip. -TTE as above. -Reports untreated sleep apnea. Last sleep study ~5 years ago. -Continue BB. -Agree with heparin drip. Will determine terminal gauger anticoagulation pending clinical coarse. -Will continue to monitor. Discussion w patient/family: The assessment and plan as outlined above was discussed with the patient and/or family members who expressed understanding and agreement. All questions were answered. Thank you for involving us in the care of your patient. Please call with any questions. Discussed and reviewed with . Subjective Principal diagnosis: NSTEMI, a.fib RVR Interval history: Patient reports symptoms improved today, however not back to baseline. Reports mild shortness of breath. Objective Vital Signs, Last 4 Hours Temp Pulse Resp BP Pulse Ox 11/27/18 09:49 100.0 F H 11/27/18 07:20 100.8 F H 102 26 147/68 97 General: Conversant, No Apparent Distress HEENT: Atraumatic, Normocephaly, Mucus Membranes Moist Neck: No JVD, Normal carotid pulses Cardiac: Reg Rate and Rhythm, Normal S1 and S2, No Murmur Lungs: Other (Lung sounds diminished throughout. ) Neuro: Alert and responsive, No focal deficits noted Abdomen: Soft, Non-Tender Skin: No rashes noted on visualized skin Musculoskeletal: No Chest Wall Tenderness Extremities: No Clubbing, No Cyanosis, No Edema, Normal Pulses Results 11/27/18 04:06 11/27/18 04:06 Lab Results Impressions Chest X-Ray 11/26/18 05:46 IMPRESSION: No acute cardiopulmonary disease. D/ / 11/26/2018 08:56:44 Mohit Lopez MD / justine ham Interpreting Provider: Mohit Lopez MD Echocardiogram 11/26/18 23:18 Impressions: Technically challenging due to body habitus. LVEF 45%. Mild global LV systolic dysfunction. LV diastolic dysfunction with elevated filling pressures. Definity echo contrast was used. Mildly dilated left ventricle. Normal right ventricular structure with low normal systolic function. Moderate mitral regurgitation. Mild tricuspid regurgitation. No pulmonary hypertension. Left Ventricular Wall Motion: Rest Echo Findings All wall segments showed normal motion. Findings: Study Quality * Technically challenging due to body habitus. ECG Findings * Normal sinus rhythm. Left Ventricle * LVEF 45%. * LV diastolic dysfunction with elevated filling pressures. * Definity echo contrast was used. * Mildly dilated left ventricle. Right Ventricle * Normal right ventricular structure with low normal systolic function. Left Atrium * Normal left atrial size. Right Atrium * Normal right atrial size. Aortic Valve * No aortic regurgitation. * Trileaflet aortic valve. * No aortic stenosis. Mitral Valve * No mitral stenosis. * Moderate mitral regurgitation. * Mitral valve not well visualized. Tricuspid Valve * Tricuspid valve not well visualized. * Mild tricuspid regurgitation. * Estimated RA pressure is 8 mmHg. * Estimated RVSP is 23 mmHg. * No pulmonary hypertension. Pulmonic Valve * Pulmonic valve is not well visualized. * No pulmonic stenosis. * No pulmonic regurgitation. Pulmonary Artery * Pulmonary artery not well visualized. Aorta * Normally sized aortic root. Pericardium * There is no pericardial effusion present. Interatrial Septum * No evidence of PFO by color Doppler. IVC * The IVC is not dilated. * < 50% respiratory change. Active Medications Albuterol/Ipratropium (Duoneb) 3 ml IH [id number] PRN PRN Reason: Shortness Of Breath/Wheezing Stop: 05/28/19 18:31 Aspirin (Aspirin Ec) 81 mg PO DAILY [facility] Stop: 05/29/19 09:01 Last Admin: 11/27/18 09:23 Dose: 81 mg Documented by: Atorvastatin Calcium (Lipitor) 40 mg PO HS [facility] Stop: 05/28/19 21:01 Last Admin: 11/26/18 20:47 Dose: 40 mg Documented by: Dextrose/Water (Dextrose 50% (Syg)) 25 ml IVP AD PRN PRN Reason: Hypoglycemia Stop: 05/28/19 12:28 Glucagon (Glucagen) 1 mg IM ONCE PRN PRN Reason: Hypoglycemia Stop: 05/28/19 12:28 Glucose (Gluctose) 15 gm PO ONCE PRN PRN Reason: Hypoglycemia Stop: 05/28/19 12:28 Glucose (Gluctose) 30 gm PO ONCE PRN PRN Reason: Hypoglycemia Stop: 05/28/19 12:28 Heparin Sodium (Porcine) (Heparin) 8,200 unit 70 unit/kg (8200 unit) IVP Q6HR PRN PRN Reason: SEE COMMENTS Stop: 05/28/19 12:26 Last Admin: 11/26/18 14:38 Dose: 8,200 unit Documented by: Heparin Sodium (Porcine) (Heparin) 4,100 unit 35 unit/kg (4100 unit) IVP Q6H PRN PRN Reason: SEE COMMENTS Stop: 05/28/19 12:26 Last Admin: 11/27/18 04:40 Dose: 4,100 unit Documented by: Heparin Sodium/Dextrose (Heparin 25,000 Unit/250 Ml D5w) 25,000 unit in 250 mls @ 16.384 mls/hr IVC .[id number] GUIDO; Protocol Stop: 05/28/19 12:31 Last Titration: 11/27/18 04:38 Dose: 17 unit/kg/hr, 19.9 mls/hr Documented by: Dextrose (Dextrose 5%) 1,000 mls @ 100 mls/hr IVC .Q10H PRN PRN Reason: HYPOGLYCEMIA Stop: 05/28/19 13:10 Insulin Detemir (Levemir) 30 unit 0.25 unit/kg (30 unit) SQ HS [facility] Stop: 05/28/19 21:01 Last Admin: 11/26/18 20:48 Dose: Not Given Documented by: Insulin Human Lispro (Humalog) 10 units 0.08 units/kg (10 units) SQ TIDWM [facility] Stop: 05/28/19 17:01 Last Admin: 11/27/18 09:28 Dose: Not Given Documented by: Metoprolol Succinate (Toprol Xl) 25 mg PO DAILY [facility] Stop: 05/29/19 09:01 Last Admin: 11/27/18 09:23 Dose: 25 mg Documented by: Naloxone HCl (Narcan) 0.4 mg IVP Q2MPRN PRN PRN Reason: SEE COMMENTS Stop: 05/28/19 09:58 Omeprazole (Prilosec) 20 mg PO DAILY [facility]; Protocol Stop: 05/29/19 09:01 Last Admin: 11/27/18 09:23 Dose: 20 mg Documented by: Ondansetron HCl (Zofran) 4 mg IVP Q8HR PRN PRN Reason: Nausea And Vomiting Stop: 05/28/19 09:58 Laboratory Tests 11/26/18 11/26/18 11/26/18 05:30 11:10 17:41 Hgb Creatinine Troponin I 0.32 H* 0.49 H* 2.05 H* 11/27/18 11/27/18 04:06 04:06 Hgb 10.7 L Creatinine 0.61 Troponin I 2.61 H* - Imaging and Cardiology Chest Xray: report reviewed Echo: report reviewed Cardiac cath: pending - EKG Interpretation EKG results cardiology: other (Telemetry reviewed with average HR previous 12 hours noted to be 93, SR. PVCs, PACs noted.) Consult Discharge Plan - Plan Referrals: Samir Barroso MD [Partnered Physician] - (per the cardiology office they will call the patient at home with follow up appointment) Yamilet Aguilar CNP [Advanced Practice Nurse] - 12/02/18 2:00 pm Cardiac Rehab - Cardiac Rehab Cardiac Rehab: Phase I consult completed. Patient was educated on why Cardiac Rehabilitation is beneficial to his/her health. Participating in a cardiac rehabilitation can improve the following: strengthen your heart, improve ejection fraction, weight reduction, decrease cholesterol levels, lower blood pressure, lower blood sugar, improve stamina, and enhance self-image. If he/she has any questions, they were instructed to call [facility] at [phone].
--- NOTE | 2018-11-27 12:28 | Electrocardiograph Report ---
[address] [place], [place] [address] Test Date: 2018-11-26 Pat Name: Elana Cotter Department: EXAM3 Room: 2N01 Gender: F Nursing Technician: : 1950 Requested By: Ike Rodríguez Order Number: [id number] Reading MD: Parviz Mcelroy Measurements Intervals [place] Rate: 174 P: 0 SD: QRS: -41 QRSD: 155 T: 147 QT: 314 QTc: 553 Interpretive Statements PROBABLE ATRIAL FIBRILLATION WITH LBBBB Electronically Signed On 11-27-2018 12:27:28 EDT by Parviz Mcelroy
[2018-11-27] MEDS ORDERED: *HR* Dextrose 50 % in Water (Syg) 50 ML SYRINGE IVP PRN (12:34)
[2018-11-27] MEDS ORDERED: Dextrose Gel 15 GM/37.5 ML TUBE PO PRN ×2 (12:34)
[2018-11-27] MEDS ORDERED: D5% in Water 1,000 ML IVC PRN (12:34)
[2018-11-27] MEDS ORDERED: Isovue-370 500 ML BOTTLE IVP ONE (13:19)
[2018-11-27 14:35] LABS: Bilirubin,Urine Negative (Negative); Blood,Urine Negative (Negative); Clarity,Urine Clear (Clear); Color,Urine Yellow (Yellow); Glucose,Urine (UA) 100 mg/dL (Normal); Ketones,Urine Negative (Negative); Leukocyte Esterase,Urine Trace (Negative); Nitrite,Urine Negative (Negative); Protein,Urine Negative (Neg-Trace); Specific Gravity,Urine > 1.030 (1.010-1.025); Urobilinogen,Urine Normal (Normal)
[2018-11-27 14:51] LABS: Bacteria,Urine Few per hpf (None-Few); Squamous Epithelial Cell,Urine Few per lpf (None-Few); WBC,Urine 0-3 per hpf (0-3)
[2018-11-27] MEDS: levoFLOXacin 750 MG/150 ML 750 MG/150 ML BAG IVPB SCH (16:58)
[2018-11-27 19:45] LABS: Adenovirus Not Detected (Not Detect); Bordetella Pertussis Not Detected (Not Detect); Chlamydophila pneumoniae Not Detected (Not Detect); Coronavirus 229E Not Detected (Not Detect); Coronavirus HKU1 Not Detected (Not Detect); Coronavirus NL63 Not Detected (Not Detect); Coronavirus OC43 Not Detected (Not Detect); Human Metapneumovirus Not Detected (Not Detect); Human Rhinovirus/Enterovirus Not Detected (Not Detect); Influenza A Subtype 2009 H1 Not Detected (Not Detect); Influenza A Untypeable Not Detected (Not Detect); Influenza B Not Detected (Not Detect); Mycoplasma pneumoniae Not Detected (Not Detect); Parainfluenza Virus 1 Not Detected (Not Detect); Parainfluenza Virus 2 Not Detected (Not Detect); Parainfluenza Virus 3 Not Detected (Not Detect); Parainfluenza Virus 4 Not Detected (Not Detect); Respiratory Syncytial Virus Not Detected (Not Detect)
[2018-11-28 01:30] LABS: BUN/Creatinine Ratio 17 (6-26); Basophils % 0.3 %; Blood Urea Nitrogen 10 mg/dL (8-23); Calcium 8.7 mg/dL (8.6-10.3); Carbon Dioxide 24 mEq/L (23-29); Chloride 100 mEq/L (98-107); Eosinophils # 0.1 K/mcL (0.0-0.6); Eosinophils % 0.8 %; Glucose 139 mg/dL (70-105); Hematocrit 31.3 % (35.3-44.9); Hemoglobin 9.7 g/dL (11.5-15.4); Immature Granulocytes % 0.5 % (0-4); Lymphocytes % 32.4 %; Magnesium 1.7 mg/dL (1.6-2.6); Mean Corpuscular Hemoglobin 23.7 pg (28.0-33.3); Mean Corpuscular Volume 76.3 fL (83.0-100.0); Monocytes # 0.9 K/mcL (0.0-1.3); Monocytes % 14.1 %; Neutrophils # 3.2 K/mcL (1.6-8.9); Osmolality,Calculated 279 (280-300); Platelet Count 142 K/mcL (140-400); Potassium 3.9 mEq/L (3.5-5.1); Red Cell Distribution Width 16.5 % (11.5-14.5); Segmented Neutrophils % 51.9 %; Sodium 134 mEq/L (136-145); White Blood Count 6.2 K/mcL (4.3-11.1); eGFR For African Americans > 60 (> 60); eGFR For Non-African Americans > 60 (> 60)
[2018-11-28] MEDS: Insulin LISPRO 300 UNITS/3 ML VIAL SQ SCH ×4 (07:56→19:53)
[2018-11-28] MEDS: Aspirin Enteric Coated 81 MG Tablet PO SCH (08:03)
[2018-11-28] MEDS: Metoprolol XL (24 HR) Succ 25 MG TAB.ER.24H PO SCH (08:03)
[2018-11-28] MEDS: levoFLOXacin 750 MG/150 ML 750 MG/150 ML BAG IVPB SCH (08:03)
[2018-11-28] MEDS: Heparin 25,000 UNIT/250 ML D5W 25,000 UNIT/250 ML IV.SOLN IVC SCH (08:04)
--- NOTE | 2018-11-28 09:41 | Electrocardiograph Report ---
[facility] Test Date: 2018-11-26 Pat Name: Elana Cotter Department: EXAM3 Room: 2N01 Gender: F Repeater Chief: : 1950 Requested By: Selvin Brand Order Number: [id number] Reading MD: Lowell Matthews Measurements Intervals [place] Rate: 152 P: 97 PA: 143 QRS: 135 QRSD: 137 T: -51 QT: 331 QTc: 527 Interpretive Statements Atrial fibrillation with rapid ventricular response Nonspecific intraventricular conduction delay Probable anterior infarct, old Repol abnrm suggests ischemia, diffuse leads Borderline ST elevation, lateral leads Baseline wander in lead(s) II Electronically Signed On 11-28-2018 9:39:34 EDT by Lowell Matthews
--- NOTE | 2018-11-28 10:23 | Internal Med Progress Note ---
Hospitalist Progress Note - Encounter Date of Encounter: 11/28/18 Time of Encounter: 08:00 - Subjective Interval History: Denies any chest pain, shortness of breath, or palpitation. No melena, hematochezia, hemoptysis, or bright red blood per rectum. - Exam Vitals: Temp Pulse Resp BP Pulse Ox 98.3 F 98 16 127/69 100 11/28/18 06:51 11/28/18 06:51 11/28/18 06:51 11/28/18 06:51 11/28/18 06:51 Exam: General: non-toxic, alert and oriented x 3 Thoracic: Normal breath sounds, no overt wheezing or crackles Cardio: Normal S1 and S2, regular rhythm, normal rate Abdomen: Soft, nontender, nondistended, obese Extremities: Warm, well perfused. DP pulses 2+ b/l. No edema. Skin: Intact. No rashes, bruises, or ulcers Neuro: Nonfocal - Assessment and Plan (1) NSTEMI (non-ST elevated myocardial infarction) Current Visit: Yes Status: Acute Assessment and Plan: Presented with shortness of breath and was found to have trop peaking at 2.6 also with new onset of afib with RVR CTA chest -ve for PE Echo showed EF 45% with global hypokinesis, moderate MR Started on heparin drip, continue continue ASA, bb, statin discussed with cardiology: since there has been a drop in hemoglobin from 12 - 9.7, will check FOBT first before proceeding with [facility] (2) Atrial fibrillation with RVR Current Visit: Yes Status: Acute Assessment and Plan: in the setting of NSTEMI as well as sepsis. Converted to normal sinus rhythm, on bb CHADSVASC score of 4, hep gtt for AC TTE with moderate MR will discuss the options of oral anticoagulant close to her discharge date outpatient sleep study (3) Sepsis Current Visit: Yes Status: Acute Assessment and Plan: Patient did have leukopenia and tachycardia on presentation, pt however had alternative explanation for tachycardia and I am clinically unable to determine whether she truly had sepsis on admission without any obvious source of in fection however, pt then developed fever of 100.8 on 11/27 CTA of the chest did not show any maryjo PNA but did have small effusions as well as peribronchial thickening in both lower lobes started on Levaquin for early PNA, will complete a 5 day course (4) Anemia Current Visit: Yes Status: Acute Assessment and Plan: Since the admission, hemoglobin dropped from 12-9.7 No signs and symptoms of GI bleed but will check stool occult prior to [facility] trend H&H, check iron profile continue PPI (5) Diabetes Current Visit: Yes Status: Chronic Assessment and Plan: Hold off on Amaryl and metformin continue medium dose sliding scale (6) Morbid obesity with BMI of 45.0-49.9, adult Current Visit: Yes Status: Chronic Assessment and Plan: lifestyle modifications emphasized DVT Prophylaxis: on hep gtt - Time Spent with Patient Total time spent is greater than 50% in coordination of care (as documented) at patient's floor/unit and/or counseling patient: 25 - 35 minutes Plan of Care Discussed with: patient Internal Medicine: Result - Labs CBC & Chem 7: 11/28/18 00:42 11/28/18 00:42 Labs: Short CBC 11/28/18 Range/Units 00:42 WBC 6.2 (4.3-11.1) K/mcL Hgb 9.7 L (11.5-15.4) g/dL Hct 31.3 L (35.3-44.9) % Plt Count 142 (140-400) K/mcL Neutrophils # 3.2 (1.6-8.9) K/mcL BMP 11/28/18 00:42 Sodium 134 L Potassium 3.9 Chloride 100 Carbon Dioxide 24 BUN 10 Creatinine 0.58 L Glucose 139 H Calcium 8.7 Cardiac Enzymes 11/28/18 Range/Units 00:42 Troponin I 1.42 H* (< 0.04) ng/mL Urine 11/27/18 Range/Units 14:10 Urine Color Yellow (Yellow) Urine Clarity Clear (Clear) Urine pH 6.0 (5.0-8.0) pH Units Ur Specific [place] > 1.030 H (1.010-1.025) Urine Protein Negative (Neg-Trace) mg/dL Urine Glucose (UA) 100 H (Normal) mg/dL - ABG Interpretation ABG results: PT/INR, D-dimer PT 12.5 Seconds (9.4-12.1) H 11/26/18 12:44 D-Dimer 293 ng/mLFEU (0-500) 11/27/18 13:39 - Impressions Impressions Chest CTA 11/27/18 14:17 IMPRESSION: 1. No acute pulmonary artery embolism. 2. Small effusions with bibasilar atelectasis. D/ / 11/27/2018 14:24:12 Adrien Chu MD / [email or web address] Interpreting Provider: Adrien Chu MD Consult Discharge Plan - Plan Referrals: Samir Barroso MD [Partnered Physician] - (per the cardiology office they will call the patient at home with follow up appointment) Yamilet Aguilar CNP [Advanced Practice Nurse] - 12/02/18 2:00 pm (3) Sepsis Qualifiers: Sepsis type: sepsis due to unspecified organism Sepsis acute organ dysfunctio n status: without acute organ dysfunction Qualified Code(s): A41.9 - Sepsis, unspecified organism (4) Anemia Qualifiers: Anemia type: unspecified type Qualified Code(s): D64.9 - Anemia, unspecified (5) Diabetes Qualifiers: Diabetes mellitus type: type 2 Diabetes mellitus alf insulin use: without alf use Diabetes mellitus complication status: without complication Qualified Code(s): E11.9 - Type 2 diabetes mellitus without complications
[2018-11-28 10:58] LABS: Hematocrit 30.8 % (35.3-44.9); Hemoglobin 9.6 g/dL (11.5-15.4)
[2018-11-28 11:11] LABS: % Iron Saturation 10 % (15-50); Iron 41 mcg/dL (50-170); Transferrin 279 mg/dL (203-362)
[2018-11-28] MEDS ORDERED: Heparin 1,000 UNITS/500 mL 500 ML ONE (14:05)
[2018-11-28] MEDS ORDERED: Nitroglycerin 1,000 MCG/10 ML VIAL IV ONE (14:05)
[2018-11-28] MEDS ORDERED: *HR* Heparin 10,000 UNIT/10 ML VIAL ONE (14:05)
[2018-11-28] MEDS ORDERED: Iopamidol 125 ML INFUS..BTL ONE ×2 (14:05→15:24)
[2018-11-28] MEDS ORDERED: 0.9 % Sodium Chloride 1,000 ML ONE ×2 (14:05→14:30)
--- NOTE | 2018-11-28 14:05 | Event Note ---
Date of Encounter: 11/28/18 Time of Encounter: 14:03 - Cardiology Event Note Patient with NSTEMI, plan for LHC. However, hemoglobin dropped this am. Stool negative for OB, iron studies low. Discussed with , suspected iron deficiency anemia, ok for dual anti-platelet therapy. Ok to proceed with LHC. Risks versus benefits of LHC explained to patient and family at length. Patient and family state understanding and agreeable to proceed. Discussed and reviewed with and . HAS-BLED Score - Score Elderly: Age>65 years Medication usage predisposing to bleeding: Antiplatelet agents, NSAIDs, Ant icoagulants Score: 2
[2018-11-28] MEDS ORDERED: *HR* Midazolam HCl 2 MG/2 ML VIAL ONE (14:51)
[2018-11-28] MEDS ORDERED: *HR* FentaNYL (PF) 100 MCG/2 ML VIAL ONE (14:51)
--- NOTE | 2018-11-28 15:00 | Pre-Sedation Evaluation ---
Pre-sedation evaluation - Pre-sedation checklist Date of procedure: 11/28/18 Procedure: heart cath Recent Vitals: Last Vital Signs Temp 98.3 F 11/28/18 11:18 Pulse 88 11/28/18 11:18 Resp 16 11/28/18 11:18 BP 123/75 11/28/18 11:18 Pulse Ox 99 11/28/18 11:18 H&P (including ROS) documented in medical record: Yes Previous reaction to sedatives/anesthetics: Unknown Dietary Status: NPO after Midnight Dentition: No loose teeth or bridges ASA Classification *see protocol: CLASS II-Mild systemic disease Cardiac Registry (Cardio Only) - Functional Capacity Functional Capacity: >=4 METS with symptoms - Clincal Frailty Scale Clinical Frailty Scale: Managing Well
[2018-11-28] MEDS ORDERED: Tirofiban 12.5 MG/250ML 12.5 MG/250 ML BAG ONE (15:18)
[2018-11-28] MEDS ORDERED: Tirofiban 12.5 MG/250ML 12.5 MG/250 ML BAG IVC SCH (16:15)
--- NOTE | 2018-11-28 16:18 | Invasive Diagnostic Lab Proc ---
Name: Elana Cotter Date of Study: 11/28/2018 Date: 1950 Ht: 61.8in Medical Record#: [id number] Age: 67 Wt: 253.53lb Gender: Female BSA: 2.11 Order #: [id number] BMI: 46.66 Physicians Procedure Physician: Artemio Coy MD Referring MD: Referring MD: Staff Name Position Time In Sites, Lida RT (R) Monitor 02:53 PM Ryan Clark RT (R) Scrub 02:53 PM Reynaldo Giron RN Campus Chaplain 02:53 PM Indications Indication Non-Stemi Procedures Performed Procedure L HRT ARTERY/VENTRICLE ANGIO PRQ CARD LAUREN STENT W/ANGIO 1 VSL PRQ CARD LAUREN STENT W/ANGIO 1 VSL Pre-Procedure Checklist Informed consent is complete signed and on chart. H&P is on chart. ID band is on and ID verified with patient. Patient NPO for procedure The procedure was described for the patient and questions were answered. Blood Pressure: 123/75 ECG is on chart. Rhythm: NSR Plan of Care Patient will tolerate the procedure without complications. Adequate level of comfort will be maintained. Hemodynamics will remain stable Patient will recover from procedure without complications. Respiratory function will be maintained. Cardiac rhythm will remain stable. Patient temperature will be maintained. Patient and/or family have verbalized understanding of the procedure. Patient Education Chief Complaint/Reason for Test: Cardiac Cath Developmental Category: Geriatric (65+ years) Developmentally Appropriate for Age: Yes Learning Barriers: None Education Needs: Procedure Education Method: Verbal Information Taught: Cardiac Cath Educational Evaluation: Able to repeat information Intravenous Access Time IV Size Location DC'd Fluid/Drip Rate Units RN 22g 1" Patent On Arrival Rt Wrist 0.9NaCl 50 ml/hr Reynaldo Giron RN 22g 1" Patent On Arrival Rt Hand Allergies PCN lisinopril Vital Signs Time BP (mmHg) HR (bpm) O2 Sat. RR (bpm) LOC 03:03 PM / % 5 = Fully awake and oriented or at pre-proc level 03:03 PM / % 4 = Oriented but drowsy 03:18 PM / % 4 = Oriented but drowsy 03:33 PM / % 4 = Oriented but drowsy 03:02 PM 149 / 82 95 95 % 33 03:07 PM 130 / 74 93 92 % 21 03:12 PM 134 / 73 81 93 % 29 03:17 PM 127 / 69 91 95 % 29 03:22 PM 128 / 69 76 94 % 17 03:27 PM 116 / 63 81 97 % 16 03:32 PM 124 / 71 85 97 % 16 03:37 PM 132 / 71 79 96 % 16 03:42 PM 124 / 66 82 98 % 16 03:47 PM 140 / 78 89 96 % 18 03:52 PM 127 / 74 79 97 % 17 03:57 PM 134 / 74 82 98 % 16 Procedural Medications Time Medication Dose Units Method Given By 03:02 PM Oxygen 2 L/min nasal cannula Reynaldo Giron RN 03:03 PM Versed 1 mg Intravenous Reynaldo Giron RN 03:03 PM Fentanyl 50 mcg Intravenous Reynaldo Giron RN 03:10 PM Lidocaine 2% 20 ml Subcutaneous Artemio Coy MD 03:20 PM Heparin 5000 units Intravenous Reynaldo Giron RN 03:23 PM Aggrastat Bolus: 58 ml Intravenous Reynaldo Giron RN 03:24 PM Aggrastat 12.5mg/250ml 21 ml Intravenous Reynaldo Giron RN 03:32 PM Nitroglycerin 100 mcg Intracoronary Artemio Coy MD 03:56 PM Plavix 600 mg Orally Reynaldo Giron RN ASA Classification: CLASS II- Mild systemic disease (i.e. well-controlled diabetes, hypertension, asthma, cigarette smoking) Aury Score Preprocedure Postprocedure Activity 2- Moves 4 extremities sustained head lift Activity 2- Moves 4 extremities sustained head lift Circulation 2- SBP +/= 20 points of pre-anesthetic level Circulation 2- SBP +/= 20 points of pre-anesthetic level Consciousness 2- Awake and alert oriented x 3 Consciousness 2- Awake and alert oriented x 3 O2 Saturation 2- Able to maintain O2 satruation of 92% on room air O2 Saturation 2- Able to maintain O2 satruation of 92% on room air Respiratory 2- Able to deep breathe and cough well Respiratory 2- Able to deep breathe and cough well Total Score 10 Total Score 10 Contrast Agent: Isovue Diagnostic Contrast: 200 ml Total Contrast: 200 ml Fluoro Dose: 208 mGy Activated Clotting Time Time Seconds to Clot 03:20 PM 139 Procedure Log Time Note Enter By 02:52 PM Pt arrived to aquatic laborer 1 at 14:52 tsites 02:53 PM Lida Leigh RT (R) Position: Monitor Time in: 14:53 tsites 02:53 PM Ryan Clark RT (R) Position: Scrub Time in: 14:53 tsites 02:53 PM Reynaldo Giron RN Position: Campus Chaplain Time in: 14:53 tsites 02:53 PM Patient charges- Angio tray pack, Navilyst 3mm J, Pulse Oximetry and ACIST tubing and transducer tsites 02:53 PM Case Delayed No tsites 02:56 PM Physician arrived 14:56 tsites 02:56 PM Meet and greet completed tsites 02:56 PM Sign in performed according to hospital policy. Informed consent was obtained. tsites 02:58 PM Procedure start 14:58 tsites 03:01 PM Vitals capture started with the following parameters, Patient=Adult, Interval=5 min, Initial Pcwbjljk=362 mmHg, Deflation Rate=5 mmHg, Cuff placed on Left Arm 03:01 PM Recorded ECG: HR=96 Condition=Condition 1 03:02 PM HR=95 bpm, KENU=890/82 mmhg, SpO2=95.0 %, Resp=33 B/min 03:02 PM Time: 15:02 Oxygen on at 2 L/min per nasal cannula by Reynaldo Giron RN tsites 03:02 PM Hair removed from procedure site in holding area using clippers. Right groin prepped with Chloraprep by Lida Leigh (R), then patient was draped. Skin intact. tsites 03:02 PM Time: 15:02 Patient comfortable and pain free: Yes tsites 03:03 PM Time: 15:03LOC: 5 = Fully awake and oriented or at pre-proc level tsites 03:03 PM Time: 15:03 Versed 1 mg Intravenous Given by Reynaldo Giron RN tsites 03:03 PM Time: 15:03 Fentanyl 50 mcg Intravenous Given by Reynaldo Giron RN tsites 03:05 PM Pressure channel 2 zeroed. 03:06 PM Recorded ECG: HR=94 Condition=Condition 1 03:07 PM HR=93 bpm, UXRH=175/74 mmhg, SpO2=92 %, Resp=21 B/min 03:08 PM Time out was performed according to hospital policy. Conscious sedation and anesthesia was achieved (see medication log with in this report above) tsites 03:10 PM Time: 15:10 20 ml Lidocaine 2% to right groin Subcutaneous Given by Artemio Coy MD tsites 03:11 PM Micro-Introducer Kit utilized for sheath placement tsites 03:11 PM Access obtained by percutaneous puncture. 5Fr 10cm Micro sheath placed in right Femoral artery. [id number] tsites 03:11 PM Sheath exchanged for a 6 Fr 11 cm Terumo [place] sheath [id number] tsites 03:12 PM HR=81 bpm, KOAW=458/73 mmhg, SpO2=93 %, Resp=29 B/min 03:12 PM 5Fr FR 4 catheter inserted over the wire DN tsites 03:12 PM 0.035 145cm Navilyst 3mmJ wire [id number] tsites 03:14 PM RCA angiography performed in multiple views. tsites 03:16 PM wire reinserted catheter removed tsites 03:16 PM 5Fr FL 4 catheter inserted over the wire DN tsites 03:16 PM LCA angiography performed in multiple views. tsites 03:16 PM Recorded Pressure: Ao, HR=91, Condition=Condition 1 (Aorta) Ao 117/56/81 03:17 PM HR=91 bpm, FBXM=674/69 mmhg, SpO2=95.0 %, Resp=29 B/min 03:17 PM Recorded Pressure: Ao, HR=91, Condition=Condition 1 (Aorta) Ao 90/47/65 03:18 PM Time: 15:03LOC: 4 = Oriented but drowsy tsites 03:18 PM Time: 15:02 Patient comfortable and pain free: Yes tsites 03:18 PM wire reinserted catheter removed tsites 03:18 PM ACT drawn tsites 03:19 PM Recorded Pressure: LV, HR=85, Condition=Condition 1 (Left Ventricle) LV 115/14/19 03:19 PM Recorded Pressure: LV, Ao, HR=78, Condition=Condition 1 (Left Ventricle) LV 127/14/18, (Aorta) Ao 124/55/83 03:20 PM 5Fr Pigtail catheter inserted over the wire DN tsites 03:20 PM Catheter crossed the aortic valve and was selectively placed in the left ventricle. Pressures recorded on pullback for left heart catheterization. tsites 03:20 PM Catheter removed tsites 03:20 PM At 15:20 the ACT was 139 seconds. tsites 03:20 PM Time: 15:20 Heparin 5000 units Intravenous Given by Reynaldo Giron RN tsites 03:21 PM PCI Status Urgent tsites 03:21 PM PCI lesion in Distal Circumflex. Pre Stenosis: 95 Pre PAT Flow: 2: Partial Flow/Perfusion (> 1 but < 3) tsites 03:21 PM Lesion found in 1st Diagonal. Pre Stenosis: 80 Pre PAT Flow: tsites 03:22 PM Lesion found in Mid RCA. Pre Stenosis: 90 Pre PAT Flow: 2: Partial Flow/Perfusion (> 1 but < 3) tsites 03:22 PM HR=76 bpm, RNFW=089/69 mmhg, SpO2=94.0 %, Resp=17 B/min 03:22 PM Coronary Dominance: right tsites 03:22 PM 6Fr XB3.5 [place] Bright-Tip guide catheter was used to cannulate the PCI vessel successfully. reused? No tsites 03:22 PM Inflation device was opened. tsites 03:23 PM .014 BMW [place] 182cm guide wire across target lesion- successful. reused? No tsites 03:23 PM Time: 15:23 Aggrastat Bolus: 58 ml Intravenous Given by Reynaldo Giron RN Vargas pump tsites 03:24 PM Time: 15:24 Aggrastat 12.5mg/250ml 21 ml Intravenous Given by Reynaldo Giron RN Vargas pump tsites 03:24 PM 2.0 mm x 12 mm Emerge Monorail balloon across target lesion- successful. reused? No tsites 03:26 PM Balloon inflated @ 6 christiano for 8 seconds tsites 03:26 PM Balloon inflated @ 6 christiano for 7 seconds tsites 03:27 PM Balloon inflated @ 6 christiano for 5 seconds tsites 03:27 PM HR=81 bpm, OEBR=318/63 mmhg, SpO2=97.0 %, Resp=16 B/min 03:28 PM Balloon catheter removed intact. tsites 03:30 PM 2.25mm x 16mm Synergy drug-eluting stent across target lesion- successful Lot #[id number] tsites 03:30 PM Stent deployed @ 11 christiano for 7 seconds tsites 03:31 PM Stent balloon reinflated @ 11 christiano for 10 seconds tsites 03:31 PM Stent balloon reinflated @ 14 christiano for 17 seconds tsites 03:32 PM HR=85 bpm, YOEW=355/71 mmhg, SpO2=97 %, Resp=16 B/min 03:32 PM Stent delivery system removed intact. tsites 03:33 PM Time: 15:32 Nitroglycerin 100 mcg Intracoronary Given by Artemio Coy MD tsites 03:33 PM Time: 15:18 Patient comfortable and pain free: Yes tsites 03:33 PM Time: 15:18LOC: 4 = Oriented but drowsy tsites 03:33 PM wire reinserted catheter removed tsites 03:34 PM 6Fr JR 4 [place] Bright-Tip guide catheter was used to cannulate the PCI vessel successfully. reused? No tsites 03:36 PM BMW reinserted tsites 03:37 PM Lesion found in Proximal RCA. Pre Stenosis: 70 Pre PAT Flow: tsites 03:37 PM HR=79 bpm, RSTH=019/71 mmhg, SpO2=96 %, Resp=16 B/min 03:40 PM 2.0x 12 reinserted to the RCA tsites 03:41 PM Balloon inflated @ 6 christiano for 5 seconds tsites 03:41 PM Balloon inflated @ 6 christiano for 3 seconds tsites 03:42 PM Balloon inflated @ 6 christiano for 6 seconds tsites 03:42 PM HR=82 bpm, JVYL=434/66 mmhg, SpO2=98 %, Resp=16 B/min 03:42 PM Balloon inflated @ 6 christiano for 8 seconds tsites 03:43 PM Balloon catheter removed intact. tsites 03:43 PM 2.5mm x 16mm Synergy drug-eluting stent across target lesion- successful Lot #[id number] tsites 03:45 PM Stent deployed @ 9 christiano for 5 seconds tsites 03:45 PM Stent balloon reinflated @ 14 christiano for 5 seconds tsites 03:46 PM Stent delivery system removed intact. tsites 03:47 PM HR=89 bpm, UHKC=260/78 mmhg, SpO2=96 %, Resp=18 B/min 03:48 PM 2.75mm x 24mm Synergy drug-eluting stent across target lesion- successful Lot #[id number] tsites 03:48 PM Time: 15:33LOC: 4 = Oriented but drowsy tsites 03:48 PM Time: 15:33 Patient comfortable and pain free: Yes tsites 03:51 PM Stent deployed @ 11 christiano for 6 seconds tsites 03:51 PM Stent balloon reinflated @ 14 christiano for 5 seconds tsites 03:52 PM Stent balloon reinflated @ 14 christiano for 6 seconds tsites 03:52 PM HR=79 bpm, RDTW=490/74 mmhg, SpO2=97 %, Resp=17 B/min 03:53 PM Stent delivery system removed intact. tsites 03:53 PM Guide wire removed intact. tsites 03:53 PM Guide catheter removed intact. tsites 03:53 PM Procedure completed at 15:53 11/28/2018 tsites 03:53 PM Did you address PAT flow and Dominance? YesCoronary Dominance: right tsites 03:55 PM Sign out completed: Radiation Dose 1989 mGy, 208 Gy/cm2 Fluoro Time: 15.1 Isovue 370 - 200ml contrast 200 ml given by Artemio Coy MD. Complications: None. The patient was discharged out of the dental laboratory technician in stable condition. Sedation minutes 52. Cardiac Rehab Consult needed: Yes. Confirmed administered medications: Yes tsites 03:55 PM Isovue 370 - 200ml,1 Bottle(s) used. tsites 03:55 PM Arterial sheath pulled, Angio-seal closure device used and was Successful [id number] S/N. tsites 03:55 PM Estimated Blood Loss: minimal tsites 03:55 PM Post ECG NSR tsites 03:56 PM Family placed in consult room. tsites 03:56 PM Time: 15:56 Plavix 600 mg Orally Given by Reynaldo Giron RN tsites 03:57 PM HR=82 bpm, DMUB=192/74 mmhg, SpO2=98 %, Resp=16 B/min 03:57 PM Post Blood Pressure 134/74 tsites 03:57 PM 15:57 Post Pulses Bilateral DP & PT 1+ tsites 03:57 PM Information taught Cardiac Cath, PCI, and Angioseal tsites 03:57 PM Education needs Procedure, Plan of Care, and Responsibilities of Patient in Care tsites 03:57 PM Learning barriers :None tsites 03:57 PM Education Methods Verbal tsites 03:57 PM Education evaluation Able to repeat information tsites 03:57 PM Site status No bleeding/ No Hematoma - Rt Groin as reported by Ryan Clark RT (R) at 15:57 tsites 03:58 PM Opsite applied tsites 03:58 PM Plavix, Effient or Brilinta given Yes tsites 03:58 PM Delay to floor No tsites 03:58 PM Patient out of room: 15:58 tsites 03:59 PM Report given to meri KAPLAN Pt taken to 2N Room #1. 15:58 tsites Complications Complication None Hemodynamics Pressures Site Systolic/A Wave Diastolic/V Wave Mean AO 117 56 81 AO 90 47 65 LV 115 14 19 LV 127 14 18 AO 124 55 83 Post Procedure Information Blood Pressure: 134/74 mmHg Rhythm: NSR Post procedural instructions were given Closure Device Time Device Success/Fail 11/28/2018 3:46:00 PM Angio-Seal VIP Successful Site Checks Time Location Status Staff Sheath In? Note 03:57 PM Rt Groin No bleeding/ No Hematoma Ryan Clark RT (R) Pulses Time Site Pre-Procedure Post-Procedure Note Bilateral DP & PT 1+ 3:57:00 PM Bilateral DP & PT 1+ Updated by Lida Leigh RT (R) on 11/28/2018 4:07:11 PM Lida Leigh RT electronically signed on 11/28/2018 4:08:24 PM with status of Final
[2018-11-29 02:07] LABS: White Blood Count 5.5 K/mcL (4.3-11.1)
[2018-11-29 02:08] LABS: Basophils % 0.4 %; Eosinophils # 0.1 K/mcL (0.0-0.6); Eosinophils % 1.6 %; Hematocrit 29.4 % (35.3-44.9); Hemoglobin 9.2 g/dL (11.5-15.4); Immature Granulocytes % 0.9 % (0-4); Lymphocytes # 1.7 K/mcL (0.6-4.6); Lymphocytes % 31.2 %; Mean Corpuscular HGB Conc 31.3 g/dL (31.6-35.5); Mean Corpuscular Hemoglobin 23.9 pg (28.0-33.3); Mean Corpuscular Volume 76.4 fL (83.0-100.0); Mean Platelet Volume 9.7 fL (9.4-12.4); Monocytes # 0.5 K/mcL (0.0-1.3); Monocytes % 8.5 %; Neutrophils # 3.2 K/mcL (1.6-8.9); Platelet Count 168 K/mcL (140-400); Red Blood Count 3.85 M/mcL (3.82-4.97); Red Cell Distribution Width 16.3 % (11.5-14.5); Segmented Neutrophils % 57.4 %
[2018-11-29 02:31] LABS: BUN/Creatinine Ratio 19 (6-26); Blood Urea Nitrogen 14 mg/dL (8-23); Calcium 8.8 mg/dL (8.6-10.3); Carbon Dioxide 27 mEq/L (23-29); Chloride 100 mEq/L (98-107); Glucose 199 mg/dL (70-105); Magnesium 1.8 mg/dL (1.6-2.6); Osmolality,Calculated 282 (280-300); Potassium 3.9 mEq/L (3.5-5.1); Sodium 133 mEq/L (136-145); eGFR For African Americans > 60 (> 60); eGFR For Non-African Americans > 60 (> 60)
[2018-11-29 06:53] VITALS: BP 118/73
[2018-11-29] MEDS ORDERED: Apixaban 5 MG TABLET PO SCH (09:00)
[2018-11-29] MEDS ORDERED: Aspirin 81 MG TAB.CHEW PO SCH (09:00)
[2018-11-29] MEDS: Metoprolol XL (24 HR) Succ 25 MG TAB.ER.24H PO SCH (09:39)
[2018-11-29] MEDS: Insulin LISPRO 300 UNITS/3 ML VIAL SQ SCH (09:39)
[2018-11-29] MEDS: levoFLOXacin 750 MG/150 ML 750 MG/150 ML BAG IVPB SCH (09:40)
--- NOTE | 2018-11-29 10:15 | Discharge Summary ---
- NOTES TO OUTPATIENT PROVIDER Notes to Outpatient Provider: Follow with cardiology as outpatient. Will need outpatient endoscopy for evaluation of iron deficiency anemia Orders not resulted at time of discharge: Pending orders 11/27/18 13:39 Culture,Blood [BC] Stat Date of Encounter: 11/29/18 Time of Encounter: 07:45 - Discharge Diagnosis (1) NSTEMI (non-ST elevated myocardial infarction) Priority: Primary Status: Acute (2) Atrial fibrillation with RVR Priority: Secondary Status: Acute (3) Sepsis Priority: Secondary Status: Acute Qualifiers: Sepsis type: sepsis due to unspecified organism Sepsis acute organ dysfunction status: without acute organ dysfunction Qualified Code(s): A41.9 - Sepsis, unspecified organism (4) Anemia Priority: Secondary Status: Acute Qualifiers: Anemia type: unspecified type Qualified Code(s): D64.9 - Anemia, unspecified (5) Diabetes Priority: Secondary Status: Chronic Qualifiers: Diabetes mellitus type: type 2 Diabetes mellitus fci insulin use: without fci use Diabetes mellitus complication status: without com plication Qualified Code(s): E11.9 - Type 2 diabetes mellitus without complications (6) Morbid obesity with BMI of 45.0-49.9, adult Priority: Secondary Status: Chronic Hospital course: Ms. Cotter is a 67 year old female with hx of HTN, HLD, DM2, COPD, YUNIER, who was admitted for NSTEMI, new afib with RVR in the setting of sepsis from presumably lower respiratory tract infection. Started on empiric Levaquin with resolution of fever. Trop peaked at 2.61 and she subsequently underwent LHC with PCI to mRCA, distal circ, and pRCA. EF 45%. Started on dual antiplatelets, beta hood, statin, and losartan dose was decreased to 12.5mg given her BP. As for her A. fib, her CHADSVASC score was 4 and after being on hep gtt for both NSTEMI and afib, it was transitioned to Eliquis. Of note, during her stay, her hemoglobin was noted to low at 9.2 with negative stool occult. Workup showed ROXI and given her clinical stability, she was referred for outpatient endoscopy for further evaluation of ROXI; oral iron supplement was started. Discharge discussed with: patient, family, nurse, managed services consultant - Time Spent with Patient Total time spent providing and/or coordinating discharge services: 33 mins - Discharge Medications Prescriptions: New Aspirin 81 mg PO DAILY #30 tab.chew Losartan [Cozaar] 12.5 mg PO DAILY #15 tablet Apixaban [Eliquis] 5 mg PO BID #60 tablet Ferrous Sulfate 325 mg PO BIDWM #60 tablet Atorvastatin [Lipitor] 40 mg PO HS #30 tablet Clopidogrel [Plavix] 75 mg PO DAILY #30 tablet Metoprolol XL (24 HR) Succ [Toprol Xl] 50 mg PO DAILY #60 tab.er.24h Continued Omeprazole [PriLOSEC] 20 mg PO DAILY Nabumetone 750 mg PO BID Glimepiride [Amaryl] 2 mg PO BID Metformin HCl 1,000 mg PO BID HYDROcodone/Acet 5/325 mg [[place] 5-325 mg] 1 tab PO TID PRN PRN Reason: Mild To Moderate Pain Discontinued Losartan Potassium [Cozaar] 100 mg PO DAILY Home Medications: Nabumetone 750 mg PO BID 11/26/18 [History] Omeprazole [PriLOSEC] 20 mg PO DAILY 11/26/18 [History] Glimepiride [Amaryl] 2 mg PO BID 11/27/18 [History] HYDROcodone/Acet 5/325 mg [[place] 5-325 mg] 1 tab PO TID PRN 11/27/18 [History] Metformin HCl 1,000 mg PO BID 11/27/18 [History] Apixaban [Eliquis] 5 mg PO BID #60 tablet 11/29/18 [Rx] Aspirin 81 mg PO DAILY #30 tab.chew 11/29/18 [Rx] Atorvastatin [Lipitor] 40 mg PO HS #30 tablet 11/29/18 [Rx] Clopidogrel [Plavix] 75 mg PO DAILY #30 tablet 11/29/18 [Rx] Ferrous Sulfate 325 mg PO BIDWM #60 tablet 11/29/18 [Rx] Losartan [Cozaar] 12.5 mg PO DAILY #15 tablet 11/29/18 [Rx] Metoprolol XL (24 HR) Succ [Toprol Xl] 50 mg PO DAILY #60 tab.er.24h 11/29/18 [Rx] Allergies/Adverse Reactions: Allergy/AdvReac Type Severity Reaction Status Date / Time Penicillins Allergy Hives Verified 11/27/18 13:14 lisinopril AdvReac Cough Verified 11/27/18 13:14 Date of admission: 11/26/18 11:46 Primary care physician: Elliott Pierre MD Consults: 11/26/18 07:11 Consult to Cardiology [CONS] Stat Comment: Consulting Provider: Cardiology Lyric Reason for Consult: new onset afib rvr. with NSTEMI Time Notified: 07:11 Call Completed: Yes 11/27/18 08:27 Consult to Cardiac Rehabilitation-Phase1 [CONS] Routine Comment: Reason for Consult: NSTEMI Call Completed: No 11/28/18 16:06 Consult to Cardiac Rehabilitation-Phase1 [CONS] Routine Comment: Reason for Consult: AMI Call Completed: Yes Consult to Nurse Navigator [CONS] Routine Comment: - Constitutional Vitals: Temp Pulse Resp BP Pulse Ox 98.4 F 73 18 118/73 91 11/29/18 06:46 11/29/18 06:46 11/29/18 06:46 11/29/18 06:46 11/29/18 06:46 Exam: General: non-toxic, alert and oriented x 3 Thoracic: Normal breath sounds, no overt wheezing or crackles Cardio: Normal S1 and S2, regular rhythm, normal rate Abdomen: Soft, nontender, nondistended, obese Extremities: Warm, well perfused. DP pulses 2+ b/l. No edema. Skin: Intact. No rashes, bruises, or ulcers Neuro: Nonfocal - Patient Status Disposition: Home, Self-Care Condition: Serious Functional capacity at discharge: independent ambulation Overall status at discharge: patient is progressing back to baseline - Discharge Instructions Instructions: Atrial Fibrillation (DC), Anemia (GEN), Chronic Obstructive Pulmonary Disease (DC), Sepsis (DC), Diabetes Mellitus Type 2 in Adults (DC) Follow Up With: Samir Barroso MD [Partnered Physician] - (per the cardiology office they will call the patient at home with follow up appointment) Yamilet Aguilar CNP [Advanced Practice Nurse] - 12/02/18 2:00 pm - Diet and Activity Activity: as per the cardiac rehab Diet: diabetic diet, low salt diet
--- NOTE | 2018-11-29 10:38 | Cardiology Progress Note ---
Date of Encounter: 11/29/18 Time of Encounter: 09:00 Assessment and Plan (1) NSTEMI (non-ST elevated myocardial infarction) Current Visit: Yes Status: Acute Per cardiology: -Troponins 0.32, 0.49, 2.05, 2.61. -ECG with a.fib RVR, newly detected LBBB. -TTE with LVEF 45%, global hypokinesis, diastolic dysfuntion, moderate MR, mild TR. [facility] completed. S/p PCI to LCX and mid and proximal RCA. No complication from procedire. Pt will require triple therapy with atrial fibrillation on eliquis. DAPT uninterrupted for one month. Can consider stopping asa in one month. Patient voiced understanding. Continue statin and bb. Out-pt f/u will be coordinated. (2) Atrial fibrillation with RVR Current Visit: Yes Status: Acute Per cardiology: -New onset a.fib. -Was given cardizem and amio in ER. -Now in SR. -BB has been started. -[id number] score 4 (age, gender, HTN, DM). On eliquis per primary team. -TTE as above. -Reports untreated sleep apnea. Last sleep study ~5 years ago. -Continue BB and eliquis. (3) Cardiomyopathy Current Visit: Yes Status: Acute Ischemic cardiomyopathy. EF 45%. On bb and arb. Currently euvolemic. CHF education reviewed. Qualifiers: Cardiomyopathy type: ischemic Qualified Code(s): I25.5 - Ischemic cardiomyopathy Discussion w patient/family: The assessment and plan as outlined above was discussed with the patient and/or family members who expressed understanding and agreement. All questions were answered. Thank you for involving us in the care of your patient. Please call with any questions. Subjective Principal diagnosis: NSTEMI, a.fib RVR Interval history: Pt sitting on side of bed without complaint. No chest pain. Objective Vital Signs, Last 4 Hours Temp Pulse Resp BP Pulse Ox 11/29/18 06:46 98.4 F 73 18 118/73 91 General: Conversant, No Apparent Distress HEENT: Atraumatic, Normocephaly, Mucus Membranes Moist Neck: No JVD, Normal carotid pulses Cardiac: Reg Rate and Rhythm, Normal S1 and S2, No Murmur Lungs: Normal Breath Sounds, No Wheeze, Rales, Rhonchi Neuro: Alert and responsive, No focal deficits noted Abdomen: Soft, Non-Tender Skin: No rashes noted on visualized skin Musculoskeletal: No Chest Wall Tenderness Extremities: No Clubbing, No Cyanosis, No Edema, Normal Pulses, Other (Right groin with no hematoma) Results 11/29/18 01:32 11/29/18 01:32 Lab Results 11/28/18 11/29/18 11/29/18 10:42 01:32 01:32 WBC 5.5 Hgb 9.6 L 9.2 L Hct 30.8 L 29.4 L Plt Count 168 Sodium 133 L Potassium 3.9 Chloride 100 Carbon Dioxide 27 BUN 14 Creatinine 0.72 Glucose 199 H Calcium 8.8 Magnesium 1.8 - Imaging and Cardiology Echo: report reviewed Cardiac cath: report reviewed Consult Discharge Plan - Plan Instructions: Atrial Fibrillation (DC), Diabetes Mellitus Type 2 in Adults (DC), Chronic Obstructive Pulmonary Disease (DC), Sepsis (DC), Anemia (GEN) Referrals: Samir Barroso MD [Partnered Physician] - (per the cardiology office they will call the patient at home with follow up appointment) Yamilet Aguilar CNP [Advanced Practice Nurse] - 12/02/18 2:00 pm Prescriptions: Aspirin 81 mg PO DAILY #30 tab.chew Prescription Printed Losartan [Cozaar] 12.5 mg PO DAILY #15 tablet Prescription Printed Apixaban [Eliquis] 5 mg PO BID #60 tablet Prescription Printed Ferrous Sulfate 325 mg PO BIDWM #60 tablet Prescription Printed levoFLOXacin [Levaquin] 750 mg PO DAILY #2 tablet Transmission Status: Received by [employer] #[id number] Atorvastatin [Lipitor] 40 mg PO HS #30 tablet Prescription Printed Clopidogrel [Plavix] 75 mg PO DAILY #30 tablet Prescription Printed Metoprolol XL (24 HR) Succ [Toprol Xl] 50 mg PO DAILY #60 tab.er.24h Prescription Printed Cardiac Rehab - Cardiac Rehab Cardiac Rehab: Phase I consult completed. Patient was educated on why Cardiac Rehabilitation is beneficial to his/her health. Participating in a cardiac rehabilitation can improve the following: strengthen your heart, improve ejection fraction, weight reduction, decrease cholesterol levels, lower blood pressure, lower blood sugar, improve stamina, and enhance self-image. If he/she has any questions, they were instructed to call [facility] at [phone].
--- NOTE | 2018-12-01 18:06 | Electrocardiograph Report ---
[address] [address] Test Date: 2018-11-28 Pat Name: Elana Cotter Department: 110 Room: 2N01 Gender: F [employer] Supervisor: Gricelda : 1950 Requested By: Artemio Coy Order Number: [id number] Reading MD: Libia Neff Measurements Intervals [place] Rate: 77 P: 57 ID: [id number] QRS: 21 QRSD: 87 T: 81 QT: 383 QTc: 415 Interpretive Statements SINUS RHYTHM NONSPECIFIC ST & T-WAVE ABNORMALITY Electronically Signed On 12-01-2018 18:04:47 EDT by Libia Neff
== END 2018-11-29 11:22 | disposition home or self-care (01) | DRG 246 ==
LOC: EMEROOARM 05:13 → 2NNU 05:13 → SUATTDRO 11:46 → 2NNU 12:45
PROVIDERS: ADMIT Pharmacist; ATTEND Internal Medicine

== ENCOUNTER 2019-11-13 13:40 | Observation (INO) ==
[2019-11-13 14:15] LABS: Basophils % 0.5 %; Eosinophils # 0.1 K/mcL (0.0-0.6); Eosinophils % 1.8 %; Hematocrit 41.5 % (35.3-44.9); Hemoglobin 14.3 g/dL (11.5-15.4); Immature Granulocytes % 0.5 % (0-4); Lymphocytes # 1.5 K/mcL (0.6-4.6); Mean Corpuscular HGB Conc 34.5 g/dL (31.6-35.5); Mean Corpuscular Hemoglobin 28.8 pg (28.0-33.3); Mean Corpuscular Volume 83.7 fL (83.0-100.0); Mean Platelet Volume 9.7 fL (9.4-12.4); Monocytes # 0.3 K/mcL (0.0-1.3); Monocytes % 4.7 %; Neutrophils # 3.8 K/mcL (1.6-8.9); Platelet Count 134 K/mcL (140-400); Red Blood Count 4.96 M/mcL (3.82-4.97); Segmented Neutrophils % 66.5 %; White Blood Count 5.7 K/mcL (4.3-11.1)
[2019-11-13 14:19] LABS: INR 1.3; Prothrombin Time 15.2 Seconds (9.4-12.1)
[2019-11-13 14:22] LABS: Activated Partial Thrombo Time 42.6 Seconds (26.0-36.0)
[2019-11-13 14:45] LABS: BUN/Creatinine Ratio 16 (6-26); Blood Urea Nitrogen 10 mg/dL (8-23); Calcium 9.8 mg/dL (8.6-10.3); Carbon Dioxide 26 mEq/L (23-29); Chloride 102 mEq/L (98-107); Glucose 165 mg/dL (70-105); Osmolality,Calculated 289 (280-300); Potassium 4.1 mEq/L (3.5-5.1); Sodium 138 mEq/L (136-145); Troponin I < 0.03 ng/mL (< 0.04); eGFR For African Americans > 60 (> 60); eGFR For Non-African Americans > 60 (> 60)
[2019-11-13] MEDS ORDERED: Aspirin 81 MG TAB.CHEW PO STA (15:04)
[2019-11-13] MEDS ORDERED: D5% in Water 1,000 ML IVC PRN (15:21)
[2019-11-13] MEDS ORDERED: Naloxone 0.4 MG/ML INJ IVP PRN (15:21)
[2019-11-13] MEDS ORDERED: Nitroglycerin 0.4 MG TAB.SUBL SL PRN (15:21)
[2019-11-13] MEDS ORDERED: Dextrose Gel 15 GM/37.5 ML TUBE PO PRN ×2 (15:21)
[2019-11-13] MEDS ORDERED: *HR* Dextrose 50 % in Water (Vial) 50 ML VIAL IVP PRN (15:21)
[2019-11-13] MEDS: Insulin LISPRO 300 UNITS/3 ML VIAL SQ SCH (16:47)
[2019-11-13] MEDS ORDERED: Albuterol 2.5 MG/3 ML NEBULIZER IH PRN (18:50)
[2019-11-13] MEDS: Apixaban 5 MG TABLET PO SCH (20:36)
[2019-11-14 04:56] LABS: Hematocrit 41.2 % (35.3-44.9); Hemoglobin 13.7 g/dL (11.5-15.4); Immature Platelets 3.3 % (1.1-6.1); Mean Corpuscular HGB Conc 33.3 g/dL (31.6-35.5); Mean Corpuscular Hemoglobin 28.5 pg (28.0-33.3); Mean Corpuscular Volume 85.7 fL (83.0-100.0); Mean Platelet Volume 9.9 fL (9.4-12.4); Red Blood Count 4.81 M/mcL (3.82-4.97); Red Cell Distribution Width 13.1 % (11.5-14.5); White Blood Count 5.9 K/mcL (4.3-11.1)
[2019-11-14 05:12] LABS: BUN/Creatinine Ratio 23 (6-26); Blood Urea Nitrogen 15 mg/dL (8-23); Calcium 9.4 mg/dL (8.6-10.3); Carbon Dioxide 26 mEq/L (23-29); Chloride 104 mEq/L (98-107); Glucose 150 mg/dL (70-105); Magnesium 1.7 mg/dL (1.6-2.6); Osmolality,Calculated 292 (280-300); Sodium 139 mEq/L (136-145); eGFR For African Americans > 60 (> 60); eGFR For Non-African Americans > 60 (> 60)
[2019-11-14 08:22] VITALS: BP 136/74
[2019-11-14] MEDS: Insulin LISPRO 300 UNITS/3 ML VIAL SQ SCH (08:25)
[2019-11-14] MEDS: Apixaban 5 MG TABLET PO SCH (08:28)
[2019-11-14] MEDS ORDERED: Metoprolol XL (24 HR) Succ 25 MG TAB.ER.24H PO SCH (09:00)
== END 2019-11-14 11:13 | disposition home or self-care (01) ==
LOC: EMEROOARM 13:40 → 3BNU 13:40 → SUATTDRO 15:26 → 3BNU 16:08
PROVIDERS: ADMIT Student in an Organized Health Care Education/Training Program; ATTEND Nurse Practitioner Adult Health

== ENCOUNTER 2021-02-14 16:15 | Observation (INO) ==
[2021-02-14] MEDS ORDERED: Perflutren Lipid Microsphere 1.3 ML in 0.9 % Sodium Chloride 8.7 ML IVP PRN (20:06)
[2021-02-14] MEDS ORDERED: Dextrose Gel 15 GM/37.5 ML TUBE PO PRN ×2 (21:46)
[2021-02-14] MEDS ORDERED: *HR* Dextrose 50 % in Water (Syg) 50 ML SYRINGE IVP PRN (21:46)
[2021-02-14] MEDS ORDERED: D5% in Water 1,000 ML IVC PRN (21:46)
[2021-02-14] MEDS ORDERED: Ondansetron 4 MG/2 ML VIAL IVP PRN (22:04)
[2021-02-14] MEDS ORDERED: Acetaminophen 325 MG TABLET PO PRN (22:04)
[2021-02-14] MEDS ORDERED: Naloxone 0.4 MG/ML INJ IVP PRN (22:04)
[2021-02-14] MEDS ORDERED: Morphine Sulfate 2 MG/ML SYRINGE IVP ONE (22:06)
[2021-02-14] MEDS ORDERED: Nitroglycerin 0.4 MG TAB.SUBL SL PRN (22:06)
[2021-02-14 23:41] LABS: Bilirubin,Urine Negative (Negative); Blood,Urine Negative (Negative); Clarity,Urine Clear (Clear); Color,Urine Light-Yellow (Yellow); Glucose,Urine (UA) Normal (Normal); Ketones,Urine Negative (Negative); Leukocyte Esterase,Urine Large (Negative); Mucus,Urine Few per lpf (None-Few); Nitrite,Urine Negative (Negative); Protein,Urine Negative (Neg-Trace); RBC,Urine 0-3 per hpf (0-3); Specific Gravity,Urine 1.019 (1.010-1.025); Squamous Epithelial Cell,Urine Few per hpf (None-Few); Urobilinogen,Urine Normal (Normal); WBC,Urine 30-50 per hpf (0-3)
[2021-02-14] MEDS: Insulin LISPRO 300 UNITS/3 ML VIAL SUBQ SCH (23:58)
[2021-02-15] MEDS ORDERED: Morphine Sulfate 2 MG/ML SYRINGE IVP PRN (02:00)
[2021-02-15] MEDS: Insulin LISPRO 300 UNITS/3 ML VIAL SUBQ SCH ×2 (05:12→11:35)
[2021-02-15 05:33] LABS: Hematocrit 38.6 % (35.3-44.9); Hemoglobin 13.4 g/dL (11.5-15.4); Mean Corpuscular HGB Conc 34.7 g/dL (31.6-35.5); Mean Corpuscular Volume 86.5 fL (83.0-100.0); Mean Platelet Volume 9.5 fL (9.4-12.4); Platelet Count 140 K/mcL (140-400); Red Blood Count 4.46 M/mcL (3.82-4.97); Red Cell Distribution Width 13.2 % (11.5-14.5); White Blood Count 5.5 K/mcL (4.3-11.1)
[2021-02-15 05:43] LABS: Activated Partial Thrombo Time 38.3 Seconds (26.0-36.0); INR 1.3; Prothrombin Time 14.5 Seconds (9.4-12.1)
[2021-02-15 05:54] LABS: BUN/Creatinine Ratio 18 (6-26); Blood Urea Nitrogen 12 mg/dL (8-23); Calcium 8.8 mg/dL (8.6-10.3); Carbon Dioxide 27 mEq/L (23-29); Chloride 104 mEq/L (98-107); Cholesterol 85 mg/dL (< 200); Glucose 172 mg/dL (70-105); HDL Cholesterol 28 mg/dL (40-59); LDL Cholesterol,Calculated 37 mg/dL (< 100); Magnesium 1.6 mg/dL (1.6-2.6); Osmolality,Calculated 290 (280-300); Potassium 3.8 mEq/L (3.5-5.1); Sodium 138 mEq/L (136-145); Triglycerides 101 mg/dL (< 150); Troponin I < 0.03 ng/mL (< 0.04); eGFR For African Americans > 60 (> 60); eGFR For Non-African Americans > 60 (> 60)
[2021-02-15 05:57] LABS: Estimated Average Glucose 180 mg/dl; Hemoglobin A1C 7.9 %
[2021-02-15] MEDS ORDERED: Famotidine 20 MG/2 ML VIAL IVP SCH (06:00)
[2021-02-15] MEDS ORDERED: Regadenoson 0.4 MG/5 ML SYRINGE IVP ONE (06:18)
[2021-02-15 10:24] VITALS: BP 151/72; PULSE 75; TEMP 97.8; O2SAT 96
[2021-02-15] MEDS ORDERED: Isosorbide MONOnitrate (24 HR) 30 MG TAB.ER.24H PO SCH (10:35)
[2021-02-15] MEDS ORDERED: Metoprolol XL (24 HR) Succ 25 MG TAB.ER.24H PO SCH (10:35)
[2021-02-15] MEDS ORDERED: Apixaban 5 MG TABLET PO SCH (10:45)
[2021-02-15] MEDS ORDERED: Metoprolol XL (24 HR) Succ 25 MG TAB.ER.24H PO ONE (13:44)
[2021-02-15] MEDS ORDERED: Isosorbide MONOnitrate (24 HR) 30 MG TAB.ER.24H PO ONE (13:44)
[2021-02-15] MEDS ORDERED: Ranolazine 500 MG TAB.ER.12H PO SCH (21:00)
[2021-02-16] MEDS ORDERED: Metoprolol XL (24 HR) Succ 25 MG TAB.ER.24H PO SCH (09:00)
[2021-02-16] MEDS ORDERED: Isosorbide MONOnitrate (24 HR) 30 MG TAB.ER.24H PO SCH (09:00)
== END 2021-02-15 16:41 | disposition home or self-care (01) ==
LOC: 3BNU
PROVIDERS: ADMIT Hospitalist; ATTEND Hospitalist